=== PATIENT | male | born 1950 | race Caucasian/White ===

== ENCOUNTER 2016-10-20 13:40 | Inpatient (IN) | payer MEDICARE ==
[2016-10-20 14:19] LABS: CHLORIDE,CL 96 mEq/L (98-106); SODIUM,NA 129 mEq/L (136-145)
[2016-10-20] MEDS ORDERED: Temazepam 15 MG Cap PO PRN (14:49)
[2016-10-20] MEDS ORDERED: Insulin Aspart 100 Units/ML 3 ML Pen SUBCUT ONE (14:54)
[2016-10-20] MEDS: Sodium Chloride 0.9% 2,000 ML IV SCH ×2 (17:14→21:44)
[2016-10-20] MEDS: Insulin Aspart 100 Units/ML 3 ML Pen SUBCUT SCH ×2 (18:27→20:36)
[2016-10-20] MEDS: Enoxaparin 40 MG/0.4 ML Syringe SUBCUT SCH (20:36)
[2016-10-20] MEDS ORDERED: Sodium Chloride 0.9% 1,000 ML IV SCH (23:00)
[2016-10-21] MEDS: Lisinopril 10 MG Tab PO SCH (07:36)
[2016-10-21 08:02] LABS: CHLORIDE,CL 104 mEq/L (98-106); SODIUM,NA 136 mEq/L (136-145)
[2016-10-21] MEDS: Insulin Aspart 100 Units/ML 3 ML Pen SUBCUT SCH ×4 (08:50→21:00)
[2016-10-21] MEDS ORDERED: Sodium Chloride 0.9% 10 ML Syringe FLUSH PRN (09:02)
[2016-10-21] MEDS: metFORMIN 500 MG Tab.ER PO SCH (09:58)
[2016-10-21] MEDS ORDERED: Insulin Detemir 100 Units/ML 3 ML Pen SUBCUT SCH (20:00)
[2016-10-21] MEDS: Enoxaparin 40 MG/0.4 ML Syringe SUBCUT SCH (21:11)
[2016-10-22 08:16] VITALS: BP 116/72
--- NOTE | 2016-10-22 08:25 | PCM.PN ---
- General Info Date of Service: 10/21/16 Admission Dx/Problem (Free Text): New Onset Diabetes Type 2 Functional Status: Reports: Pain Controlled, Tolerating Diet, Ambulating - Review of Systems General: Reports: Weakness, Fatigue. Denies: Fever HEENT: Reports: No Symptoms Pulmonary: Denies: Shortness of Breath, Cough, Wheezing Cardiovascular: Denies: Chest Pain, Edema, Lightheadedness Gastrointestinal: Denies: Abdominal Pain, Nausea, Vomiting Genitourinary: Reports: Other (polyuria) Musculoskeletal: Reports: No Symptoms Skin: Reports: No Symptoms Neurological: Reports: Weakness. Denies: Dizziness, Headache - Patient Data Vitals - Most Recent: Last Vital Signs Temp 99.6 F 10/22/16 08:00 Pulse 60 10/22/16 08:00 Resp 16 10/22/16 08:00 BP 116/72 10/22/16 08:00 Pulse Ox 96 10/22/16 08:00 Weight - Most Recent: 211 lb 9.6 oz I&O - Last 24 Hours: Intake & Output 10/21/16 10/22/16 10/22/16 22:59 06:59 14:59 Intake Total 1560 750 Output Total 2700 1500 Balance -1140 -750 Lab Results Last 24 Hours: Laboratory Results - last 24 hr 10/21/16 Range/Units 11:20 POC Glucose 296 H (75-105) mg/dl Med Orders - Current: Current Medications Enoxaparin Sodium (Lovenox) 40 mg SUBCUT Q24H [facility] Last Admin: 10/21/16 21:11 Dose: 40 mg Insulin Aspart (Novolog) 0 unit SUBCUT WITHMEALSANDBED [facility] PRN Reason: Protocol Last Admin: 10/21/16 21:00 Dose: 8 unit Insulin Detemir (Levemir) 15 unit SUBCUT BEDTIME [facility] Last Admin: 10/21/16 21:11 Dose: 15 units Lisinopril (Prinivil) 10 mg PO DAILY [facility] Last Admin: 10/21/16 07:36 Dose: 10 mg Metformin HCl (Glucophage Xr) 1,000 mg PO DAILY [facility] Last Admin: 10/21/16 09:58 Dose: 1,000 mg Sodium Chloride (Saline Flush) 10 ml FLUSH ASDIRECTED PRN PRN Reason: Keep Vein Open Temazepam (Restoril) 15 mg PO BEDTIME PRN PRN Reason: Sleep Discontinued Medications Sodium Chloride (Normal Saline) 2,000 mls @ 250 mls/hr IV ASDIRECTED [facility] Stop: 10/21/16 22:59 Last Admin: 10/20/16 21:44 Dose: 250 mls/hr Sodium Chloride (Normal Saline) 1,000 mls @ 100 mls/hr IV ASDIRECTED [facility] Last Admin: 10/21/16 01:46 Dose: 100 mls/hr Insulin Aspart (Novolog) 10 unit SUBCUT ONETIME ONE Stop: 10/20/16 14:55 Last Admin: 10/20/16 16:42 Dose: 10 units - Exam General: Alert, Oriented HEENT: Mucous Membr. Moist/[place] Neck: Supple Lungs: Clear to Auscultation, Normal Respiratory Effort Cardiovascular: Regular Rate, Regular Rhythm GI/Abdominal Exam: Normal Bowel Sounds, Soft, Non-Tender Extremities: Normal Inspection, No Pedal Edema Skin: Warm, Dry Neurological: No New Focal Deficit Psy/Mental Status: Alert, Normal Affect, Normal Mood - Problem List & Annotations (1) Type 2 diabetes mellitus SNOMED Code(s): 09422776 Code(s): E11.9 - TYPE 2 DIABETES MELLITUS WITHOUT COMPLICATIONS Status: Acute Priority: High Current Visit: Yes Qualifiers: Diabetes mellitus complication status: with hyperglycemia (2) Dehydration SNOMED Code(s): 63478733 Code(s): E86.0 - DEHYDRATION Status: Acute Priority: High Current Visit : Yes - Problem List Review Problem List Initiated/Reviewed/Updated: Yes - My Orders Last 24 Hours: My Active Orders 10/21/16 08:00 metFORMIN [Glucophage XR] 1,000 mg PO DAILY 10/21/16 09:01 Diabetes Education [RC] DAILY Consult to Diabetic Nurse Specialist [CONS] Routine 10/21/16 09:02 Sodium Chloride 0.9% [Saline Flush] 10 ml FLUSH ASDIRECTED PRN Convert IV to Saline Lock [OM.PC] Routine 10/21/16 20:00 Insulin Detemir [Levemir] 15 unit SUBCUT BEDTIME - Assessment Assessment:: Type 2 Diabetes Mellitus Dehydration - Plan Plan:: 10-21-[address] Gutierrez with new onset diabetes. Presented with polyuria , polydipsia and a 50# weight loss over 3 months. Has been feeling some weakness and fatigue. Was found to have blood sugars over 500 on admit with an A1C of 11.9%. Admitted and started on IV fluids, sliding scale insulin. He admits to feeling somewhat better today, blood sugars down to 300 range. Has seen some improvement with polyuria. Labs all noted. Panel 8 stable this am. Will start Metformin today, Levemir at night. Diabetic education for patient. Help to demonstrate and train patient to learn how to check blood sugars, give insulin. Saline lock IV. Possible discharge tomorrow.
[2016-10-22] MEDS: Insulin Aspart 100 Units/ML 3 ML Pen SUBCUT SCH (08:38)
[2016-10-22] MEDS: metFORMIN 500 MG Tab.ER PO SCH (08:38)
[2016-10-22] MEDS: Lisinopril 10 MG Tab PO SCH (08:39)
--- NOTE | 2016-10-22 11:10 | PCM.DCSUM1 ---
Discharge Summary - Hospital Course Free Text/Narrative:: Patient admitted by Dr. Gutierrez for new onset diabetes mellitus type 2. Had a 50# weight loss over 3 months, polyuria, polydipsia. Had not been feeling well. Labs ordered on admit showed blood sugar over 500, A1C 11.5. Was admitted for IV fluids, diabetic education and start on sliding scale insulin. - Discharge Data Discharge Date: 10/22/16 Discharge Disposition: Home, Self-Care 01 Condition: Good - Discharge Diagnosis/Problem(s) (1) Type 2 diabetes mellitus SNOMED Code(s): 73041564 ICD Code: E11.9 - TYPE 2 DIABETES MELLITUS WITHOUT COMPLICATIONS Status: Acute Priority: High Current Visit: Yes Qualifiers: Diabetes mellitus complication status: with hyperglycemia (2) Dehydration SNOMED Code(s): 02645855 ICD Code: E86.0 - DEHYDRATION Status: Acute Priority: High Current Visit: Yes - Patient Summary/Data Complications: none Consults: Consultations 10/20/16 14:49 Consult to Diabetic Nurse Specialist [CONS] Urgent Consult to Lamp Mechanic [CONS] Routine 10/21/16 09:01 Consult to Diabetic Nurse Specialist [CONS] Routine Hospital Course: Patient is doing better today. Blood sugars down to 250-300. Blood pressure in good control. Has had sliding scale insulin through the stay, approximately 4-6 units each meal. Voiding less frequently. Diabetic education has been provided. Patient has been demonstrated understanding of checking blood sugars and has been performing these over the last 24 hours. Patient did give himself his injections yesterday as well. Dietitian in to give him information on his new diagnosis and dietary changes with this. - Patient Instructions Diet: Diabetic Diet Activity: As Tolerated Notify Provider of: Fever, Nausea and/or Vomiting - Discharge Plan Prescriptions/Med Rec: Insulin Detemir [Levemir] 20 unit SUBCUT BEDTIME #1 pen Lisinopril 10 mg PO DAILY #30 tablet metFORMIN HCl [Metformin HCl ER] 1,000 mg PO DAILY #30 tab.er.24 Home Medications: Home Meds Ibuprofen/Diphenhydramine Cit [Ibuprofen PM Caplet] 1 - 2 tab PO BEDTIME [History] Insulin Detemir [Levemir] 20 unit SUBCUT BEDTIME #1 pen 10/22/16 [Rx] Lisinopril 10 mg PO DAILY #30 tablet 10/22/16 [Rx] metFORMIN HCl [Metformin HCl ER] 1,000 mg PO DAILY #30 tab.er.24 10/22/16 [Rx] Patient Handouts: Type 2 Diabetes Mellitus, Adult, Insulin Treatment for Diabetes, Hypoglycemia, Hyperglycemia, [id number] Referrals: August Gutierrez MD [Primary Care Provider] - (Follow up with Dr. Gutierrez on October 29) - Discharge Summary/Plan Comment DC Time >30 min.: No Discharge Summary/Plan Comment: Discharge home on Levemir 20 units every HS. Start Lisinopril and Metformin. Continue to check blood sugars and keep a log. Bring log to appointment with Dr. Gutierrez next week. Meet with senior health educator next week. - General Info Date of Service: 10/22/16 Admission Dx/Problem (Free Text: New Onset Diabetes Type 2 Functional Status: Reports: Pain Controlled, Tolerating Diet, Ambulating - Review of Systems General: Reports: Weakness. Denies: Fever HEENT: Reports: No Symptoms Pulmonary: Denies: Shortness of Breath, Cough Cardiovascular: Denies: Chest Pain, Edema, Lightheadedness Gastrointestinal: Reports: No Symptoms Genitourinary: Reports: No Symptoms Musculoskeletal: Reports: No Symptoms Skin: Reports: No Symptoms Neurological: Reports: No Symptoms Psychiatric: Reports: No Symptoms - Patient Data Vitals - Most Recent: Last Vital Signs Temp 99.6 F 10/22/16 08:00 Pulse 60 10/22/16 08:00 Resp 16 10/22/16 08:00 BP 116/72 10/22/16 08:39 Pulse Ox 96 10/22/16 08:00 Weight - Most Recent: 211 lb 9.6 oz I&O - Last 24 hours: Intake & Output 10/21/16 10/22/16 10/22/16 22:59 06:59 14:59 Intake Total 1560 750 Output Total 2700 1500 150 Balance -1140 -750 -150 Lab Results - Last 24 hrs: Laboratory Results - last 24 hr 10/21/16 Range/Units 11:20 POC Glucose 296 H (75-105) mg/dl Med Orders - Current: Current Medications Enoxaparin Sodium (Lovenox) 40 mg SUBCUT Q24H [facility] Last Admin: 10/21/16 21:11 Dose: 40 mg Insulin Aspart (Novolog) 0 unit SUBCUT WITHMEALSANDBED [facility] PRN Reason: Protocol Last Admin: 10/22/16 08:38 Dose: 4 unit Insulin Detemir (Levemir) 15 unit SUBCUT BEDTIME [facility] Last Admin: 10/21/16 21:11 Dose: 15 units Lisinopril (Prinivil) 10 mg PO DAILY [facility] Last Admin: 10/22/16 08:39 Dose: 10 mg Metformin HCl (Glucophage Xr) 1,000 mg PO DAILY [facility] Last Admin: 10/22/16 08:38 Dose: 1,000 mg Sodium Chloride (Saline Flush) 10 ml FLUSH ASDIRECTED PRN PRN Reason: Keep Vein Open Temazepam (Restoril) 15 mg PO BEDTIME PRN PRN Reason: Sleep Discontinued Medications Sodium Chloride (Normal Saline) 2,000 mls @ 250 mls/hr IV ASDIRECTED [facility] Stop: 10/21/16 22:59 Last Admin: 10/20/16 21:44 Dose: 250 mls/hr Sodium Chloride (Normal Saline) 1,000 mls @ 100 mls/hr IV ASDIRECTED [facility] Last Admin: 10/21/16 01:46 Dose: 100 mls/hr Insulin Aspart (Novolog) 10 unit SUBCUT ONETIME ONE Stop: 10/20/16 14:55 Last Admin: 10/20/16 16:42 Dose: 10 units - Exam Quality Assessment: Reports: Supplemental Oxygen General: Reports: Alert, Oriented HEENT: Reports: Mucous Membr. Moist/[place] Neck: Reports: Supple Lungs: Reports: Clear to Auscultation, Normal Respiratory Effort Cardiovascular: Reports: Regular Rate, Regular Rhythm GI/Abdominal Exam: Normal Bowel Sounds, Soft, Non-Tender Extremities: Normal Inspection, No Pedal Edema Skin: Reports: Warm, Dry Neurological: Reports: No New Focal Deficit Psy/Mental Status: Reports: Alert, Normal Affect, Normal Mood *Q Meaningful Use (DIS) - VTE *Q VTE Criteria *Q: - Stroke *Q Stroke Criteria *Q: - AMI *Q AMI Criteria *Q:
== END 2016-10-22 11:35 | disposition home or self-care (01) | DRG 639 ==
LOC: CC.MS 13:40 → CC.FCMC 13:40 → UNDOADMIN 14:28 → CC.MS 14:28
PROVIDERS: ADMIT Family Medicine; ATTEND Family Medicine
DX: E11.65 Type 2 diabetes mellitus with hyperglycemia (principal); E86.0 Dehydration; R63.4 Abnormal weight loss; I10 Essential (primary) hypertension; E11.9 Type 2 diabetes mellitus without complications; Z12.5 Encounter for screening for malignant neoplasm of prostate; I83.90 Asymptomatic varicose veins of unspecified lower extremity; R35.8 Other polyuria; R63.1 Polydipsia
CPT/HCPCS: 36415; 80053; 81001; 83036; 84443; 85025; G0103; 80048; 82962; A9270-GY; J1650; J1815-GY; J7030

== ENCOUNTER 2018-01-09 12:55 | Emergency (ER) | payer MEDICARE, OTHER ==
[2018-01-09 13:12] VITALS: BP 139/75
--- NOTE | 2018-01-09 13:37 | EDM.PDOC ---
ED HPI GENERAL MEDICAL PROBLEM - General Chief Complaint: Gastrointestinal Problem Stated Complaint: ATE TO FAST AND FEELS LIKE ITS NOT MOVING Time Seen by Provider: 01/09/18 13:29 Source of Information: Reports: Patient, Family History Limitations: Reports: No Limitations - History of Present Illness INITIAL COMMENTS - FREE TEXT/NARRATIVE: Loi is a 67 year old male who presents to the clinic with c/o "not passing food." He reports that last evening he ate pork chops. He feels that they did not pass as he feels "something stuck" just below his sternum. He reports then this morning he tried to eat oatmeal and feels the same thing happened. He denies any pain, but just "feels like something's stuck." He reports he has been having these issues intermittently since September of this year. He reports he has to eat very slow as he is worried food will get stuck. He denies any blood in his stools. He has not had any fevers or joint pains. Denies any nausea , vomiting, diarrhea, chest pain, shortness of breath, dizziness, urinary symptoms. Does report occasionally when he tried to eat something he will have to "spit up mucous" as it won't "go down." He was diagnosed with Type II DM in October 2016. Chart review shows he came to the clinic at that time for a 50 lb weight loss over the previous few months. His A1c at that time was found to be 11.5. Random glucose in the 500s. He follows a strict diabetic diet and has managed his diabetes with metformin alone. He reports that he does walk some for exercise but does not exercise regularly. He has continued to lose an additional 50 lbs of weight unintentionally. Family report a 100 lb unintentional weight loss in the past year. Additionally, patient has had a 20 lb weight loss since his last visit in the clinic November. Onset Date: 09/08/17 Duration: Getting Worse Location: Reports: Abdomen Quality: Reports: Pressure Improves with: Reports: None Worsens with: Reports: Eating Associated Symptoms: Reports: Loss of Appetite, Other (weight loss). Denies: Confusion, Chest Pain, Cough, cough w sputum, Diaphoresis, Fever/Chills, Headaches, Malaise, Nausea/Vomiting, Rash, Seizure, Shortness of Breath, Syncope , Weakness - Related Data Allergies Allergy/AdvReac Type Severity Reaction Status Date / Time No Known Allergies Allergy Verified 01/09/18 13:17 Home Meds: Home Meds Ibuprofen/Diphenhydramine Cit [Ibuprofen PM Caplet] 1 - 2 tab PO BEDTIME [History] Lisinopril 10 mg PO DAILY #30 tablet 10/22/16 [Rx] metFORMIN HCl [Metformin HCl ER] 1,000 mg PO DAILY #30 tab.er.24 10/22/16 [Rx] amLODIPine Besylate [Amlodipine Besylate] 5 mg PO DAILY 01/09/18 [History] Past Medical History HEENT History: Reports: Impaired Vision Cardiovascular History: Reports: Hypertension Endocrine/Metabolic History: Reports: Diabetes, Type II - Past Surgical History HEENT Surgical History: Reports: None GI Surgical History: Reports: Appendectomy Social & Family History - Family History Family Medical History: Noncontributory - Tobacco Use Smoking Status *Q: Never Smoker - Caffeine Use Caffeine Use: Reports: None - Recreational Drug Use Recreational Drug Use: No ED ROS GENERAL - Review of Systems Review Of Systems: See Below Constitutional: Reports: Decreased Appetite, Weight Loss (~100 lbs in past year) . Denies: Fever, Chills, Malaise, Weakness, Fatigue HEENT: Denies: Dental Pain, Rhinitis, Throat Pain, Throat Swelling Respiratory: Denies: Shortness of Breath, Pleuritic Chest Pain, Cough, Sputum, Hemoptysis Cardiovascular: Denies: Chest Pain, Dyspnea on Exertion, Edema, Lightheadedness , Palpitations, Syncope Endocrine: Reports: No Symptoms GI/Abdominal: Reports: Decreased Appetite, Difficulty Swallowing ("feels like it gets stuck"), Other (spitting after eating, no significant vomiting). Denies : Abdominal Pain, Anorexia, Black Stool, Bloody Stool, Distension, Hematemesis, Hematochezia, Melena, Nausea, Vomiting : Reports: No Symptoms Musculoskeletal: Reports: No Symptoms Skin: Reports: No Symptoms Neurological: Reports: No Symptoms Psychiatric: Reports: No Symptoms Hematologic/Lymphatic: Reports: No Symptoms Immunologic: Reports: No Symptoms ED EXAM, GI/ABD - Physical Exam Exam: See Below Exam Limited By: No Limitations General Appearance: Alert, No Apparent Distress, Thin Eyes: Bilateral: Normal Appearance, EOMI Throat/Mouth: Normal Inspection, Normal Lips, Normal Teeth, Normal Gums, Normal Oropharynx, Normal Voice, No Airway Compromise Head: Atraumatic, Normocephalic Neck: Normal Inspection, Supple, Non-Tender, Full Range of Motion. No: Tender Lateral, Tender Midline Respiratory/Chest: No Respiratory Distress, Lungs Clear, Normal Breath Sounds, No Accessory Muscle Use, Chest Non-Tender Cardiovascular: Normal Peripheral Pulses, Regular Rate, Rhythm, No Edema, No Gallop, No JVD, No Murmur, No Rub GI/Abdominal Exam: Normal Bowel Sounds, Soft, Non-Tender, No Organomegaly, No Distention, No Abnormal Bruit, No Mass, Other (sunken appearance) Back Exam: Normal Inspection, Full Range of Motion. No: CVA Tenderness (L), CVA Tenderness (R) Extremities: Normal Inspection, Normal Range of Motion, Non-Tender, Normal Capillary Refill, No Pedal Edema Neurological: Alert, Oriented, CN II-XII Intact, Normal Cognition, Normal Gait, Normal Reflexes, No Motor/Sensory Deficits Psychiatric: Normal Affect, Normal Mood Skin Exam: Warm, Dry, Intact, Normal Color, No Rash Lymphatic: No Adenopathy Course - Vital Signs Last Recorded V/S: Last Vital Signs Temp 99.2 F 01/09/18 12:58 Pulse 87 01/09/18 12:58 Resp 18 01/09/18 12:58 BP 139/75 01/09/18 12:58 Pulse Ox 99 01/09/18 12:58 - Orders/Labs/Meds Orders: Active Orders 24 hr Category Date Time Status Abdomen 2V AP Flat Upright [CR] Stat Exams 01/09/18 13:15 Taken Labs: Laboratory Tests 01/09/18 01/09/18 Range/Units 13:37 13:37 WBC 9.1 (5.0-10.0) 10^3/uL RBC 4.66 (4.50-6.00) 10^6/uL Hgb 15.5 (14.0-18.0) g/dL Hct 44.2 (40.0-54.0) % MCV 94.8 H (82.0-94.0) fL MCH 33.3 H (27.0-32.0) pg MCHC 35.1 (33.0-38.0) g/dL RDW Coeff of Matthew 12.9 (11.0-15.0) % Plt Count 355 (150-400) 10^3/uL Neut % (Auto) 76.7 (35-85) % Lymph % (Auto) 16.3 (10-55) % [place] % (Auto) 6.7 (0-16) % Eos % (Auto) 0.2 (0-5) % Baso % (Auto) 0.1 (0-3) % Neut # (Auto) 6.99 (1.80-7.00) 10^3/uL Lymph # (Auto) 1.49 (1.00-4.80) 10^3/uL [place] # (Auto) 0.61 (0.00-0.80) 10^3/uL Eos # (Auto) 0.02 (0.00-0.45) 10^3/uL Baso # (Auto) 0.01 10^3/uL Sodium 143 (136-145) mEq/L Potassium 4.2 (3.5-5.0) mEq/L Chloride 104 (98-106) mEq/L Carbon Dioxide 27 (21-32) mmol/L BUN 24 H (7-18) mg/dL Creatinine 1.1 (0.7-1.3) mg/dL Est Cr Clr Drug Dosing 73.40 mL/min Estimated GFR (MDRD) > 60 (>=60) mL/min Glucose 120 H (75-99) mg/dL Calcium 9.2 (8.4-10.1) mg/dL Total Bilirubin 0.5 (0.0-1.0) mg/dL AST 19 (15-37) U/L ALT 30 (12-78) U/L Alkaline Phosphatase 92 (46-116) U/L C-Reactive Protein < 0.2 L (0.2-0.8) mg/dL Total Protein 7.4 (6.4-8.2) g/dL Albumin 4.2 (3.4-5.0) g/dL - Re-Assessments/Exams Free Text/Narrative Re-Assessment/Exam: 01/09/18 14:15 Discussed lab and xray findings with patient, spouse, and son. Discussed that because he is not actively vomiting, with no indication of obstruction on imaging, this is something that needs follow up as outpatient. Discussed that with significant weight loss over the last year and recent onset of these swallowing issues, he needs upper endoscopy. Departure - Departure Time of Disposition: 14:21 Disposition: Home, Self-Care 01 Condition: Fair Clinical Impression: Recent unintentional weight loss over several months, Esophageal dysphagia - Discharge Information *PRESCRIPTION DRUG MONITORING PROGRAM REVIEWED*: Not Applicable *COPY OF PRESCRIPTION DRUG MONITORING REPORT IN PATIENT CRISTEL: Not Applicable Instructions: Dysphagia Referrals: August Gutierrez MD [Primary Care Provider] - Forms: ED Department Discharge Additional Instructions: Eat small bites of soft textured foods until follow up. Sips of [employer] if difficulty with swallowing. Will call with radiologist xray results once available. Discussed the need for upper endoscopy given unintentional weight loss and current symptoms. Recommend follow up with Dr. Gutierrez this week. Call clinic tomorrow morning to set up appointment. - My Orders Last 24 Hours: My Active Orders 01/09/18 13:15 Abdomen 2V AP Flat Upright [CR] Stat - Assessment/Plan Last 24 Hours: My Active Orders 01/09/18 13:15 Abdomen 2V AP Flat Upright [CR] Stat
[2018-01-09 14:06] LABS: CHLORIDE,CL 104 mEq/L (98-106); SODIUM,NA 143 mEq/L (136-145)
== END 2018-01-09 14:39 | disposition home or self-care (01) ==
LOC: CC.ED 12:55
DX: R13.19 Other dysphagia (principal); R63.4 Abnormal weight loss; I10 Essential (primary) hypertension; E11.9 Type 2 diabetes mellitus without complications; Z79.84 Long term (current) use of oral hypoglycemic drugs; Z79.899 Other long term (current) drug therapy
CPT/HCPCS: 36415; 74019; 80053; 85025; 86140; 99284

== ENCOUNTER → 2018-01-13 | Day surgery (SDC) | payer MEDICARE, OTHER ==
[~2018-01-13] MED LIST: Benzocaine 20% Oral Spray 59.2 ML Canister MUCMEM ONE; Lactated Ringers 1,000 ML IV SCH; Midazolam 1 MG/ML 2 ML SDV IV ONE; Midazolam 1 MG/ML 2 ML SDV ONE
[2018-01-13 11:25] VITALS: BP 101/61
--- NOTE | 2018-01-13 14:23 | OR ---
DATE OF OPERATION: 01/13/2018 PREOPERATIVE DIAGNOSIS: DYSPHAGIA. POSTOPERATIVE DIAGNOSIS: DYSPHAGIA. SURGEON: Lloyd Wheeler MD PROCEDURE: ESOPHAGOGASTRODUODENOSCOPY WITH MULTIPLE DISTAL ESOPHAGEAL BIOPSIES AND PHOTOGRAPHS. ANESTHESIA: Conscious sedation with IV Versed. SPECIMEN: Multiple distal esophageal biopsies. 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 INDICATION FOR PROCEDURE: This 67-year-old male has dysphagia, mostly to meat products and solid foods. DESCRIPTION OF PROCEDURE: After adequate preparation, a gastroscope was inserted into the esophagus. This was passed down to the distal esophagus. He shows marked erosions of the esophagus and at least a 10 cm area that is consistent with Marshall's. He has some especially macerated area further down, toward the EG junction. The scope was advanced into the stomach, and retroflexed views were done. I did not see any significant mass areas on the gastric side of the EG junction, but it does show a large hiatal hernia opening. The scope was advanced through the stomach and into the pylorus and duodenum. These were normal. On withdrawal of the scope, multiple photographs of the distal esophagus were taken and multiple biopsies in different areas. Air was suctioned from the stomach and the scope removed. HASMUKH/WILFRID /[id number]
== END ==
LOC: CC.SDS 09:45
PROVIDERS: ATTEND Surgery
DX: C15.5 Malignant neoplasm of lower third of esophagus (principal); K44.9 Diaphragmatic hernia without obstruction or gangrene; I10 Essential (primary) hypertension; E11.9 Type 2 diabetes mellitus without complications; Z87.891 Personal history of nicotine dependence; Z79.84 Long term (current) use of oral hypoglycemic drugs; Z79.899 Other long term (current) drug therapy
CPT/HCPCS: 43239; 82962; J2250; J7120; 88305; 88313; 88342

== ENCOUNTER 2018-02-18 14:38 | Inpatient (IN) | payer MEDICARE, OTHER ==
[2018-02-18] MEDS ORDERED: Temazepam 15 MG Cap PO PRN (14:55)
[2018-02-18] MEDS ORDERED: Sodium Chloride 0.9% 10 ML Syringe FLUSH PRN (14:55)
[2018-02-18] MEDS ORDERED: Ondansetron 4 MG Tab.DIS PO PRN (14:55)
[2018-02-18] MEDS ORDERED: Acetaminophen/HYDROcodone 325-5 MG Tab PO PRN (14:55)
[2018-02-18 15:42] LABS: CHLORIDE,CL 100 mEq/L (98-106); SODIUM,NA 137 mEq/L (136-145)
[2018-02-18] MEDS ORDERED: Pantoprazole 40 MG Vial IVPUSH SCH (16:00)
[2018-02-18] MEDS: Piperacillin/Tazobactam 3.375 GM in Sodium Chloride 0.9% 50 ML IV SCH ×2 (16:08→21:56)
[2018-02-18] MEDS: Acetaminophen 325 MG Tab PO PRN ×2 (16:08→20:30)
[2018-02-18] MEDS: Enoxaparin 40 MG/0.4 ML Syringe SUBCUT SCH (16:08)
--- NOTE | 2018-02-18 17:44 | PCM.SN ---
- Free Text/Narrative Note: Asked to see patients with non-functioning J-tube. Has esophageal tube with placement of tube for nutrition prior to Rx and chemo. Tube not flushing. Tube balloon deflated and the advanced. Tube now freely movable. Balloon reinflated. KUB with dye confirms tube still inside bowel. May use tube for feeding. Consult dictated. Dr. Wheeler
[2018-02-18] MEDS ORDERED: Ibuprofen 200 MG Tab PO ONE (18:17)
[2018-02-18] MEDS ORDERED: Ibuprofen 200 MG Tab PO PRN (18:18)
[2018-02-18] MEDS ORDERED: Acetaminophen/oxyCODONE 325-5 MG Tab PO SCH (18:30)
[2018-02-18] MEDS ORDERED: Acetaminophen/oxyCODONE 325-5 MG Tab PO PRN (19:01)
[2018-02-18] MEDS ORDERED: amLODIPine 2.5 MG Tab PO SCH (20:00)
--- NOTE | 2018-02-19 01:29 | CONS ---
DATE: 02/18/2018 ATTENDING PHYSICIAN: August Gutierrez MD CONSULTING PHYSISICIAN: Lloyd Wheeler MD INTRODUCTION: This 67-year-old male was admitted through the clinic as an inpatient to . He has a diagnosis of esophageal carcinoma and currently has a right subclavian Port-A-Cath placement and a jejunostomy tube that is nonfunctioning. The consult was for evaluation of the jejunostomy tube. Examination does show a bulge, which is either subcutaneous or intramuscular. With palpation, it has some leakage of feeding tube substance back through and around the tube site. It indicates that the tube is not in the correct position. The feeding jejunostomy tube does have a balloon at the end. I deflated the balloon and then advanced the tube further into the bowel and reinflated the balloon. This then did free up the catheter and I was able to then flush the catheter without any problems. To document that this was still within the lumen of the bowel, a radiopaque dye was used to inject through the tube and a flat plate of the abdomen was taken. This did confirm that the dye was within the bowel and the feeding tube can be reused. For the present time, I am going to leave the subcutaneous collection as it seems to be draining around the tube. Instead of incising and draining this, we will have to follow this to determine if anything else needs to be done about this subcutaneous collection. The feeding tube, however, is working now and can be used. HASMUKH/PHOENIXL /[id number]
[2018-02-19] MEDS: Piperacillin/Tazobactam 3.375 GM in Sodium Chloride 0.9% 50 ML IV SCH ×3 (03:57→15:46)
[2018-02-19] MEDS ORDERED: Pantoprazole 40 MG Tab.CR PO SCH (08:00)
[2018-02-19] MEDS ORDERED: metFORMIN 500 MG Tab.ER PO SCH (08:00)
[2018-02-19] MEDS ORDERED: Lisinopril 10 MG Tab PO SCH (08:00)
[2018-02-19 08:23] VITALS: BP 102/54
[2018-02-19 09:24] LABS: CHLORIDE,CL 98 mEq/L (98-106); SODIUM,NA 135 mEq/L (136-145)
[2018-02-19] MEDS: Acetaminophen 325 MG Tab PO PRN (13:56)
--- NOTE | 2018-02-19 15:38 | PCM.DCSUM1 ---
Discharge Summary - Hospital Course HPI Initial Comments: This patient is a 67 year old male admitted yesterday afternoon to the hospital. Patient has esophageal cancer, start chemo scheduled for Wednesday. He got a J tube placed on kavya per patient. It had odor on kavya, co placed on Augmentin then. The patient reports that on this week he had felt like he had a fever, felt weak and not very well. He noticed a redness around the area of the J tube site. The patient was seen yesterday and admitted on IV Zosyn. The patient had tube feedings started. It was reported the tube feeds were leaking and possible tube out of place. General surgeon here put back in place, and image showed in place. The tube feedings were decreased in half to 42ml/hr. The nurse today reported to me that she attempted tube feedings and again it had drainage out around the tube that was a lot. I then went and examined the patient. The patient has redness surrounding the tube , there is read streaking to the left lateral side and left lower abdomen from the site. There is warm to touch. There is copius amounts of purulent drainage yellow from the site. The patient reports that today he feels worse. 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 We have no radiologist to do fluoro to check tube placement. Tube feedings will not be started. While there is some mild imprrovement in labs, the patient site looks worse today. I have called and spoke to [facility]. Spoke to Dr. Graff the hospitalist. He reports to send the patient and general surgery would like to see the patient. US yesterday, reviewed report shows possible fluid collection. Concern is this is abscess collection. Concern is I also do not know if the J tube is still in place with increased drainage from site during feedings. The feedings are held. Dr. Graff has agreed to accept the patient. Will transfer to [facility]. The risk of transfer are , worsening of condition, pain increase, mvc. The benefits of transfer are fluoro if needed, general surgeon on site, higher level of care. The benefits of staying in [place] close to home. The risk of staying in [place] is no tube feedings, worsening of infection, , no surgeon. Diagnosis: Stroke: No - Discharge Data Discharge Date: 02/19/18 ([facility]) Discharge Disposition: DC/Tfer to Acute Hospital 02 Condition: Good - Patient Summary/Data Consults: Consultations 02/18/18 16:45 Consult to Physician [CONS] Urgent - Patient Instructions Diet: NPO Diet, Other: No tube Feedings until cleared Activity: Bedrest - Discharge Plan *PRESCRIPTION DRUG MONITORING PROGRAM REVIEWED*: Not Applicable *COPY OF PRESCRIPTION DRUG MONITORING REPORT IN PATIENT CRISTEL: Not Applicable Home Medications: Home Meds Ibuprofen/Diphenhydramine Cit [Ibuprofen PM Caplet] 1 - 2 tab PO BEDTIME [History] amLODIPine Besylate [Amlodipine Besylate] 5 mg PO BEDTIME 01/09/18 [History] Lisinopril 20 mg PO DAILY 01/13/18 [History] Ibuprofen 400 mg PO Q8H PRN 02/18/18 [History] Pantoprazole [ProTONIX] 40 mg PO DAILY 02/18/18 [History] metFORMIN [Glucophage XR] 500 mg PO DAILY 02/18/18 [History] oxyCODONE HCl/Acetaminophen [Oxycodone-Acetaminophen 5-325] 1 - 2 each PO Q4H [History] - Discharge Summary/Plan Comment DC Time >30 min.: No - General Info Functional Status: Reports: Other (No tube feedings ) - Review of Systems General: Reports: Fever, Weakness (gnerally), Fatigue, Malaise, Appetite ( decreased) HEENT: Reports: No Symptoms Pulmonary: Reports: No Symptoms Cardiovascular: Reports: No Symptoms Gastrointestinal: Reports: Abdominal Pain, Nausea, Other (leaking of tube feedings from j-tube). Denies: Vomiting Genitourinary: Reports: No Symptoms Musculoskeletal: Reports: No Symptoms Skin: Reports: No Symptoms Neurological: Reports: No Symptoms Psychiatric: Reports: No Symptoms - Patient Data Vitals - Most Recent: Last Vital Signs Temp 99 F 02/19/18 08:00 Pulse 80 02/19/18 08:00 Resp 18 02/19/18 08:00 BP 102/54 L 02/19/18 08:23 Pulse Ox 100 02/19/18 08:00 Weight - Most Recent: 180 lb 0.013 oz I&O - Last 24 hours: Intake & Output 01/01/2602/19/18 02/19/18 06:59 14:59 22:59 Intake Total 897 336 Output Total 925 200 Balance -28 136 Lab Results - Last 24 hrs: Laboratory Results - last 24 hr 02/18/18 02/18/18 02/19/18 Range/Units 15:15 20:09 09:05 WBC (5.0-10.0) 10^3/uL RBC (4.50-6.00) 10^6/uL Hgb (14.0-18.0) g/dL Hct (40.0-54.0) % MCV (82.0-94.0) fL MCH (27.0-32.0) pg MCHC (33.0-38.0) g/dL RDW Coeff of Matthew (11.0-15.0) % Plt Count (150-400) 10^3/uL Neut % (Auto) (35-85) % Lymph % (Auto) (10-55) % [place] % (Auto) (0-16) % Eos % (Auto) (0-5) % Baso % (Auto) (0-3) % Neut # (Auto) (1.80-7.00) 10^3/uL Lymph # (Auto) (1.00-4.80) 10^3/uL [place] # (Auto) (0.00-0.80) 10^3/uL Eos # (Auto) (0.00-0.45) 10^3/uL Baso # (Auto) 10^3/uL Sodium 137 (136-145) mEq/L Potassium 4.6 (3.5-5.0) mEq/L Chloride 100 (98-106) mEq/L Carbon Dioxide 30 (21-32) mmol/L BUN 30 H (7-18) mg/dL Creatinine 0.9 (0.7-1.3) mg/dL Est Cr Clr Drug Dosing TNP Estimated GFR (MDRD) > 60 (>=60) mL/min Glucose 142 H (75-99) mg/dL POC Glucose 243 H (75-105) mg/dl Calcium 8.9 (8.4-10.1) mg/dL Total Bilirubin 0.3 (0.0-1.0) mg/dL AST 20 (15-37) U/L ALT 36 (12-78) U/L Alkaline Phosphatase 128 H (46-116) U/L C-Reactive Protein 17.0 H 14.7 H (0.2-0.8) mg/dL Total Protein 6.6 (6.4-8.2) g/dL Albumin 2.3 L (3.4-5.0) g/dL 02/19/18 02/19/18 Range/Units 09:05 09:05 WBC 14.4 H (5.0-10.0) 10^3/uL RBC 3.42 L (4.50-6.00) 10^6/uL Hgb 11.1 L (14.0-18.0) g/dL Hct 34.2 L (40.0-54.0) % MCV 100.0 H (82.0-94.0) fL MCH 32.5 H (27.0-32.0) pg MCHC 32.5 L (33.0-38.0) g/dL RDW Coeff of Matthew 13.1 (11.0-15.0) % Plt Count 503 H (150-400) 10^3/uL Neut % (Auto) 85.2 H (35-85) % Lymph % (Auto) 8.1 L (10-55) % [place] % (Auto) 6.3 (0-16) % Eos % (Auto) 0.3 (0-5) % Baso % (Auto) 0.1 (0-3) % Neut # (Auto) 12.22 H (1.80-7.00) 10^3/uL Lymph # (Auto) 1.17 (1.00-4.80) 10^3/uL [place] # (Auto) 0.90 H (0.00-0.80) 10^3/uL Eos # (Auto) 0.05 (0.00-0.45) 10^3/uL Baso # (Auto) 0.02 10^3/uL Sodium 135 L (136-145) mEq/L Potassium 5.1 H (3.5-5.0) mEq/L Chloride 98 (98-106) mEq/L Carbon Dioxide 30 (21-32) mmol/L BUN 28 H (7-18) mg/dL Creatinine 1.0 (0.7-1.3) mg/dL Est Cr Clr Drug Dosing 83.91 Estimated GFR (MDRD) > 60 (>=60) mL/min Glucose 245 H D (75-99) mg/dL POC Glucose (75-105) mg/dl Calcium 8.7 (8.4-10.1) mg/dL Total Bilirubin (0.0-1.0) mg/dL AST (15-37) U/L ALT (12-78) U/L Alkaline Phosphatase (46-116) U/L C-Reactive Protein (0.2-0.8) mg/dL Total Protein (6.4-8.2) g/dL Albumin (3.4-5.0) g/dL ANGELINA Results - Last 24 hrs: Microbiology 02/18/18 15:20 Aerobic Blood Culture - Preliminary Blood - Venous - Lab Draw NO GROWTH AFTER 1 DAY Anaerobic Blood Culture - Preliminary NO GROWTH AFTER 1 DAY 02/18/18 15:15 Aerobic Blood Culture - Preliminary Blood - Venous NO GROWTH AFTER 1 DAY Anaerobic Blood Culture - Preliminary NO GROWTH AFTER 1 DAY 02/18/18 18:13 Wound Culture - Preliminary Abdomen - Drainage Gram Negative Rods Med Orders - Current: Current Medications Acetaminophen (Tylenol) 650 mg PO Q4H PRN PRN Reason: Pain (Mild 1-3)/fever Last Admin: 02/19/18 13:56 Dose: 650 mg Hydrocodone Bitart/Acetaminophen ([place] 325-5 Mg) 1 tab PO Q4H PRN PRN Reason: Pain (moderate 4-6) Amlodipine Besylate (Norvasc) 5 mg PO BEDTIME [facility] Last Admin: 02/18/18 20:10 Dose: 5 mg Enoxaparin Sodium (Lovenox) 40 mg SUBCUT Q24H [facility] Last Admin: 02/18/18 16:08 Dose: 40 mg Piperacillin Sod/Tazobactam (Sod 3.375 gm/ Sodium Chloride) 50 mls @ 100 mls/ hr IV Q6H [facility] Last Admin: 02/19/18 09:38 Dose: 100 mls/hr Ibuprofen (Motrin) 400 mg PO Q8H PRN PRN Reason: Fever Lisinopril (Prinivil) 20 mg PO DAILY [facility] Last Admin: 02/19/18 08:23 Dose: Not Given Metformin HCl (Glucophage Xr) 500 mg PO DAILY [facility] Last Admin: 02/19/18 07:39 Dose: 500 mg Ondansetron HCl (Zofran Odt) 4 mg PO Q4H PRN PRN Reason: nausea, able to take PO Oxycodone/Acetaminophen (Percocet 325-5 Mg) 1 tab PO Q4H PRN PRN Reason: Pain Pantoprazole Sodium (Protonix Iv) 40 mg IVPUSH Q24H [facility] Last Admin: 02/18/18 16:07 Dose: 40 mg Pantoprazole Sodium (Protonix) 40 mg PO DAILY [facility] Last Admin: 02/19/18 07:39 Dose: 40 mg Sodium Chloride (Saline Flush) 10 ml FLUSH ASDIRECTED PRN PRN Reason: Keep Vein Open Temazepam (Restoril) 15 mg PO BEDTIME PRN PRN Reason: Sleep Discontinued Medications Heparin Sodium (Porcine) (Heparin Lock Flush 100 Units/Ml) Confirm Administered Dose 500 units .ROUTE .STK-MED ONE Stop: 02/19/18 04:46 Last Admin: 02/19/18 04:45 Dose: 500 units Ibuprofen (Motrin) 800 mg PO ONETIME ONE Stop: 02/18/18 18:18 Last Admin: 02/18/18 18:59 Dose: 800 mg Oxycodone/Acetaminophen (Percocet 325-5 Mg) 1 tab PO Q4H [facility] Last Admin: 02/18/18 19:04 Dose: Not Given - Exam General: Reports: Alert, Oriented, Cooperative, Mild Distress Lungs: Reports: Clear to Auscultation, Normal Respiratory Effort Cardiovascular: Reports: Regular Rate, Regular Rhythm, No Murmurs GI/Abdominal Exam: Normal Bowel Sounds, Soft, No Organomegaly, No Abnormal Bruit , Pelvis Stable, Tender (over J Tube), Other (J-tube surrounding redness, streaking from site to the LLQ, left lateral side. Copius amounts of purulent drainage form the site. Warm to touch.) Back Exam: Reports: Normal Inspection, Full Range of Motion Extremities: Normal Inspection, Normal Range of Motion, Non-Tender, No Pedal Edema, Normal Capillary Refill Skin: Reports: Warm, Dry, Other (see abd exam) Neurological: Reports: No New Focal Deficit Psy/Mental Status: Reports: Alert, Normal Affect, Normal Mood
[2018-02-19] MEDS: Enoxaparin 40 MG/0.4 ML Syringe SUBCUT SCH (15:45)
[2018-02-20] MEDS ORDERED: Pantoprazole 40 MG Vial IVPUSH SCH (09:00)
== END 2018-02-19 17:21 | DRG 394 ==
LOC: CC.MS 14:38 → UNDOADMIN 14:38 → CC.MS 14:55
PROVIDERS: ADMIT Family Medicine; ATTEND Family Medicine
PROC: 3E0G76Z Introduction of Nutritional Substance into Upper GI, Via Natural or Artificial Opening (ICD-10-PCS; principal; 2018-02-18)
DX: K94.22 Gastrostomy infection (principal); C15.9 Malignant neoplasm of esophagus, unspecified; L03.311 Cellulitis of abdominal wall; L02.211 Cutaneous abscess of abdominal wall; K94.23 Gastrostomy malfunction; Y83.8 Other surgical procedures as the cause of abnormal reaction of the patient, or of later complication, without mention of misadventure at the time of the procedure; Z79.899 Other long term (current) drug therapy; Z79.84 Long term (current) use of oral hypoglycemic drugs; K21.9 Gastro-esophageal reflux disease without esophagitis; I10 Essential (primary) hypertension; E11.9 Type 2 diabetes mellitus without complications; Z95.828 Presence of other vascular implants and grafts
CPT/HCPCS: 36415; 74018; 76705; 80048; 80053; 82962; 85025; 86140; 87040; 87070; 87077; 87186; A9270-GY; C9113; J1642; J1650; J2543; J7050; Q9967

== ENCOUNTER 2020-10-05 11:21 | Emergency (ER) | payer MEDICARE, OTHER ==
[2020-10-05 11:23] VITALS: BP 136/71; PULSE 79
[2020-10-05] MEDS ORDERED: Sodium Chloride 0.9% 1,000 ML IV SCH (11:45)
--- NOTE | 2020-10-05 12:13 | EDM.PDOC ---
ED HPI GENERAL MEDICAL PROBLEM - General Chief Complaint: General Stated Complaint: N/V Time Seen by Provider: 10/05/20 11:30 Source of Information: Reports: Patient, Family History Limitations: Reports: No Limitations - History of Present Illness INITIAL COMMENTS - FREE TEXT/NARRATIVE: Sohail is a 70 year old male who presents with complaints of nausea and vomiting. Relates has been having issues with his stomach now for several months. Actually sees Dr. Calderon, GI, in [place] for this. Reports has issues with "stomach being full and not moving through". Was seen by his oncologist in August, history of esophageal cancer. Had history of esophagectomy. Previous had concerns with strictures so his oncologist felt needed to be evaluated further as has had dilation before for this. Was then seen by Dr. Gutierrez who referred him to Dr. Calderon for this. Barnum to have gastroparesis so was started on Reglan 5 mg QID. This was doubled about 10 days ago but patient has not seen improvement. Also felt he was having issues with constipation and had been using Miralax. Dr. Calderon's FEATHERER put him on Dulcolax. He has taken several of these and did finally have a good BM a few days ago. Is mostly on a full liquid diet, eating pudding and ice cream and Boost but does relate that his sugars have only went up marginally with this. Due to his excessive weight loss, is off all of his diabetic meds. Today patient is concerned that "can't go through another night of nausea and vomiting. Had back pain also and was unable to sleep last night as he was uncomfortable". Concerned about being dehydrated. Does not have any nausea at present. Last dry heaves were at 0600. Relates received IV fluids in past when this occurred. Onset: Gradual Duration: Hour(s):, Improving Location: Reports: Abdomen Quality: Reports: Ache (nausea at times) Severity: Mild Associated Symptoms: Reports: Loss of Appetite, Nausea/Vomiting, Weakness. Denies: Confusion, Chest Pain, Cough, Fever/Chills, Shortness of Breath Treatments INFORMATICS COORDINATOR: Reports: Other Medication(s) Other Treatments INFORMATICS COORDINATOR: reglan - Related Data Allergies Allergy/AdvReac Type Severity Reaction Status Date / Time No Known Allergies Allergy Verified 10/05/20 11:23 Home Meds: Home Meds Lisinopril 20 mg PO DAILY 10/07/18 [History] amLODIPine [Norvasc] 5 mg PO DAILY 10/07/18 [History] Metoclopramide [Reglan] 10 mg PO QID 09/30/20 [History] bisacodyL [Dulcolax] 5 mg PO DAILY 09/30/20 [History] Omeprazole 20 mg PO DAILY 10/05/20 [History] Past Medical History HEENT History: Reports: Impaired Vision Cardiovascular History: Reports: Hypertension Endocrine/Metabolic History: Reports: Diabetes, Type II Oncologic (Cancer) History: Reports: Esophageal - Past Surgical History HEENT Surgical History: Reports: None GI Surgical History: Reports: Appendectomy, Esophageal Dilatation, Other (See Below) Other GI Surgeries/Procedures: j tube Social & Family History - Family History Family Medical History: No Pertinent Family History - Tobacco Use Tobacco Use Status *Q: Never Tobacco User Second Hand Smoke Exposure: No - Caffeine Use Caffeine Use: Reports: None - Recreational Drug Use Recreational Drug Use: No ED ROS GENERAL - Review of Systems Review Of Systems: See Below Constitutional: Reports: Malaise, Weakness, Fatigue, Decreased Appetite. Denies: Fever, Chills HEENT: Denies: Ear Pain, Sinus Problem, Throat Pain Respiratory: Denies: Shortness of Breath, Cough Cardiovascular: Denies: Chest Pain Endocrine: Reports: Fatigue GI/Abdominal: Reports: Constipation, Nausea. Denies: Abdominal Pain, Vomiting : Reports: No Symptoms Musculoskeletal: Reports: Back Pain Skin: Reports: No Symptoms Neurological: Reports: Weakness ED EXAM, GENERAL - Physical Exam Exam: See Below Exam Limited By: No Limitations General Appearance: Alert, WD/WN, No Apparent Distress Ears: Normal External Exam, Normal TMs Nose: Normal Inspection, Normal Mucosa, No Blood Throat/Mouth: Normal Inspection, Normal Oropharynx Head: Normocephalic Neck: Normal Inspection, Supple, Non-Tender Respiratory/Chest: No Respiratory Distress, Lungs Clear, Normal Breath Sounds Cardiovascular: Regular Rate, Rhythm GI/Abdominal: Normal Bowel Sounds, Soft, Non-Tender Extremities: Normal Inspection, No Pedal Edema Neurological: Alert, Oriented Skin Exam: Warm, Dry Course - Vital Signs Last Recorded V/S: Last Vital Signs Temp 97.0 F 10/05/20 11:21 Pulse 79 10/05/20 11:21 Resp 16 10/05/20 11:21 BP 136/71 10/05/20 11:21 Pulse Ox 98 10/05/20 11:21 - Orders/Labs/Meds Orders: Active Orders 24 hr Category Date Time Status Sodium Chloride 0.9% [Normal Saline] 1,000 ml Med 10/05/20 11:45 Active IV ASDIRECTED Medication Orders Sodium Chloride (Normal Saline) 1,000 mls @ 250 mls/hr IV ASDIRECTED EMMY Last Admin: 10/05/20 12:09 Dose: 250 mls/hr Documented by: SIVA Labs: Laboratory Tests 10/05/20 10/05/20 10/05/20 Range/Units 11:42 12:00 12:00 WBC 8.6 (4.0-11.0) 10^3/uL RBC 3.44 L (4.50-6.00) x10^6/uL Hgb 11.5 L (14.0-18.0) g/dL Hct 34.1 L (42.0-52.0) % MCV 99.1 H (83.0-97.0) fL MCH 33.4 H (27.0-32.0) pg MCHC 33.7 (32.0-36.0) g/dL RDW Coeff of Matthew 12.7 (11.0-15.0) % Plt Count 333 (150-400) 10^3/uL Immature Gran % (Auto) 0.2 (0.0-4.9) % Neut % (Auto) 81.9 H (41-71) % Lymph % (Auto) 7.8 L (24-44) % [place] % (Auto) 8.7 (0-10) % Eos % (Auto) 0.9 (0-6) % Baso % (Auto) 0.5 (0-1) % Neut # (Auto) 7.03 (1.80-8.00) x10^3/uL Lymph # (Auto) 0.67 (0.60-5.00) 10^3/uL [place] # (Auto) 0.75 (0.00-1.50) 10^3/uL Eos # (Auto) 0.08 (0.00-1.50) 10^3/uL Baso # (Auto) 0.04 (0.00-0.50) 10^3/uL Immature Gran # (Auto) 0.02 (0.00-0.49) 10^3/uL Sodium 141 (136-145) mEq/L Potassium 4.3 (3.5-5.0) mEq/L Chloride 103 (98-106) mEq/L Carbon Dioxide 31 (21-32) mmol/L BUN 28 H (7-18) mg/dL Creatinine 1.5 H (0.7-1.3) mg/dL Est Cr Clr Drug Dosing 49.20 mL/min Estimated GFR (MDRD) 46 L (>=60) mL/min Glucose 108 H (75-99) mg/dL Calcium 9.0 (8.4-10.1) mg/dL Total Bilirubin 0.5 (0.0-1.0) mg/dL AST 18 (15-37) U/L ALT 22 (12-78) U/L Alkaline Phosphatase 97 (46-116) U/L C-Reactive Protein 2.6 H (0.2-0.8) mg/dL Total Protein 6.9 (6.4-8.2) g/dL Albumin 3.1 L (3.4-5.0) g/dL Urine Color Yellow (YELLOW) Urine Appearance Clear (CLEAR) Urine pH 7.0 (4.5-8.0) Ur Specific [place] 1.020 (1.003-1.020) Urine Protein Negative (NEGATIVE) mg/dL Urine Glucose (UA) Negative (NEGATIVE) mg/dL Urine Ketones Negative (NEGATIVE) mg/dL Urine Occult Blood Negative (NEGATIVE) Urine Nitrite Negative (NEGATIVE) Urine Bilirubin Negative (NEGATIVE) Urine Urobilinogen 1.0 (0.2-1.0) EU/dL Ur Leukocyte Esterase Negative (NEGATIVE) Meds: Medications Generic Name Dose Route Start Last Admin Trade Name Freq PRN Reason Stop Dose Admin Sodium Chloride 1,000 mls @ 250 mls/hr 10/05/20 11:45 10/05/20 12:09 Normal Saline IV 250 mls/hr ASDIRECTED EMMY Administration Discontinued Medications Generic Name Dose Route Start Last Admin Trade Name Freq PRN Reason Stop Dose Admin Ondansetron HCl 2 packet 10/05/20 12:33 Take Home: Ondansetron 4 Mg Tab.Dis, 2 Tab Pack PO 10/05/20 12:34 ONETIME ONE - Re-Assessments/Exams Free Text/Narrative Re-Assessment/Exam: 10/05/20 12:38 Discussed lab results with patient. Will give the liter of fluids. Will send home with Zofran. Advised to either contact Dr. Gutierrez or Dr. Calderon on Wednesday in regards to ongoing issues with dietary intake, gastroparesis, constipation for any other changes they would suggest. Departure - Departure Time of Disposition: 12:40 Disposition: Home, Self-Care 01 Condition: Fair Clinical Impression: Nausea and vomiting - Discharge Information *PRESCRIPTION DRUG MONITORING PROGRAM REVIEWED*: No *COPY OF PRESCRIPTION DRUG MONITORING REPORT IN PATIENT CRISTEL: No Instructions: Nausea and Vomiting, Adult, [id number] Referrals: August Gutierrez MD [Primary Care Provider] - Forms: ED Department Discharge Additional Instructions: 1. Continue to push liquids 2. Zofran 4 mg ODT one tab every 6 hours as needed for nausea 3. Miralax daily 4. Call Dr. Gutierrez or Dr. Calderon's office on Wednesday for further recommendation Sepsis Event Note (ED) - Evaluation Sepsis Screening Result: No Definite Risk - Focused Exam Vital Signs: Vital Signs Temp Pulse Resp BP Pulse Ox 10/05/20 11:21 97.0 F 79 16 136/71 98 - My Orders Last 24 Hours: My Active Orders 10/05/20 11:45 Sodium Chloride 0.9% [Normal Saline] 1,000 ml IV ASDIRECTED - Assessment/Plan Last 24 Hours: My Active Orders 10/05/20 11:45 Sodium Chloride 0.9% [Normal Saline] 1,000 ml IV ASDIRECTED
[2020-10-05] MEDS ORDERED: Take Home: Ondansetron 4 MG Tab.DIS, 2 Tab Pack PO ONE (12:33)
== END 2020-10-05 13:26 | disposition home or self-care (01) ==
LOC: CC.ED 11:21
DX: R11.2 Nausea with vomiting, unspecified (principal); I10 Essential (primary) hypertension; E11.9 Type 2 diabetes mellitus without complications; Z79.899 Other long term (current) drug therapy
CPT/HCPCS: 36415; 80053; 81003; 85025; 86140; 99283; A9270-GY; J7030

== ENCOUNTER 2020-10-22 18:12 | Inpatient (IN) | payer MEDICARE, OTHER ==
--- NOTE | 2020-10-22 19:09 | EDM.PDOC ---
ED HPI GENERAL MEDICAL PROBLEM - General Chief Complaint: General Stated Complaint: weakness Time Seen by Provider: 10/22/20 18:40 Source of Information: Reports: Patient, Family History Limitations: Reports: No Limitations - History of Present Illness INITIAL COMMENTS - FREE TEXT/NARRATIVE: Sohail is a 70 year old male who presents to ER with weakness and back pain. Relates had gone to [place] today to have an EGD/colonoscopy due to gastroparesis/malnutrition and nausea. 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 Have tried different medications with limited results. Plan to try another new med and if doesn't work, may have to have a feeding tube back in as he continues to be weak and losing weight. Has a difficult time eating, is nauseated much of the time and had been previously told that "the food doesn't move through". He did have lactulose started and Senna and has been having BMs on occasion. Today, was scheduled to have a follow up to determine why he continues to have this to the degree he does. Had increased cough and excessive phlegm so they did not want to do the procedure. Was told he was "low on oxygen as well". Was sent home and advised to follow up with his primary. Took a 2 1/2 hour nap after returning home but when awoke was so weak he could hardly get out of bed. Has not had anything to eat or drink yet today. Admits did not try after he was sent home as took a tramadol and then a nap and hasn't felt like eating. Not aware of any fevers. Admits that has issues with cough and phlegm and at times, spits up a great deal. Were going to have him get IV fluids as he has a standing order but felt he needed to be evaluated as well. Duration: Chronic, Waxing/Waning Location: Reports: Generalized Quality: Reports: Ache Severity: Moderate Improves with: Reports: Rest Associated Symptoms: Reports: Cough, cough w sputum, Loss of Appetite, Malaise, Nausea/Vomiting, Shortness of Breath, Weakness. Denies: Chest Pain, Fever/Chills Treatments [facility] DBA: Reports: Other Medication(s) Other Treatments [employer] [employer] D[facility]: tramadol Back Pain Score (Numeric/FACES): 2 - Related Data Allergies Allergy/AdvReac Type Severity Reaction Status Date / Time No Known Allergies Allergy Verified 10/22/20 18:20 Home Meds: Home Meds Lisinopril 20 mg PO DAILY 10/07/18 [History] amLODIPine [Norvasc] 5 mg PO BEDTIME 10/07/18 [History] Metoclopramide [Reglan] 40 mg PO QID 09/30/20 [History] Omeprazole 20 mg PO BID 10/05/20 [History] Acetaminophen [Acetaminophen Extra Strength] 1,000 mg PO Q6H PRN 10/18/20 [History] Lactulose 15 ml PO DAILY PRN 10/18/20 [History] Sennosides/Docusate Sodium [Senna-Docusate Sodium Tablet] 1 tab PO BID 10/18/20 [History] traMADol HCl [Tramadol HCl] 50 mg PO Q4H PRN 10/18/20 [History] Past Medical History HEENT History: Reports: Impaired Vision Cardiovascular History: Reports: Hypertension Endocrine/Metabolic History: Reports: Diabetes, Type II Oncologic (Cancer) History: Reports: Esophageal - Past Surgical History HEENT Surgical History: Reports: None GI Surgical History: Reports: Appendectomy, Esophageal Dilatation, Other (See Below) Other GI Surgeries/Procedures: j tube Social & Family History - Family History Family Medical History: No Pertinent Family History - Tobacco Use Tobacco Use Status *Q: Former Tobacco User - Caffeine Use Caffeine Use: Reports: None ED ROS GENERAL - Review of Systems Review Of Systems: See Below Constitutional: Reports: Chills, Malaise, Weakness, Fatigue, Decreased Appetite. Denies: Fever HEENT: Denies: Ear Pain, Sinus Problem, Throat Pain Respiratory: Reports: Shortness of Breath, Cough, Sputum. Denies: Hemoptysis Cardiovascular: Denies: Chest Pain, Edema, Lightheadedness Endocrine: Reports: Fatigue GI/Abdominal: Reports: Decreased Appetite, Nausea. Denies: Abdominal Pain, Constipation, Diarrhea, Vomiting : Reports: No Symptoms Musculoskeletal: Reports: No Symptoms Skin: Reports: Pallor Neurological: Reports: Weakness ED EXAM, GENERAL - Physical Exam Exam: See Below Exam Limited By: No Limitations General Appearance: Alert, WD/WN, Mild Distress Ears: Normal External Exam, Normal TMs Nose: Normal Inspection, Normal Mucosa, No Blood Throat/Mouth: Normal Inspection, Normal Oropharynx Head: Normocephalic Neck: Normal Inspection, Supple, Non-Tender Respiratory/Chest: No Respiratory Distress, Decreased Breath Sounds Cardiovascular: Regular Rate, Rhythm GI/Abdominal: Normal Bowel Sounds, Soft, Non-Tender Extremities: Normal Inspection, No Pedal Edema Neurological: Alert, Oriented Skin Exam: Warm, Dry, Pallor Course - Vital Signs Last Recorded V/S: Last Vital Signs Temp 99.1 F 10/22/20 18:45 Pulse 76 10/22/20 18:45 Resp 16 10/22/20 19:05 BP 110/60 10/22/20 18:13 Pulse Ox 95 10/22/20 19:05 - Orders/Labs/Meds Orders: Active Orders 24 hr Category Date Time Status Oxygen Therapy, ED [RC] ASDIRECTED Care 10/22/20 18:15 Active CXR [Chest 2V] [CR] Stat Exams 10/22/20 18:33 Taken CULTURE BLOOD [BC] Stat Lab 10/22/20 19:37 Received CULTURE BLOOD [BC] Stat Lab 10/22/20 19:37 Received Sodium Chloride 0.9% [Normal Saline] 1,000 ml Med 10/22/20 19:00 Active IV ASDIRECTED Blood Culture x2 Reflex Set [OM.PC] Stat Oth 10/22/20 19:16 Ordered Medication Orders Sodium Chloride (Normal Saline) 1,000 mls @ 150 mls/hr IV ASDIRECTED [facility] Last Admin: 10/22/20 19:22 Dose: 150 mls/hr Documented by: EDIS Labs: Laboratory Tests 10/22/20 10/22/20 10/22/20 Range/Units 18:49 18:49 18:49 WBC 19.1 H (4.0-11.0) 10^3/uL RBC 3.64 L (4.50-6.00) x10^6/uL Hgb 12.2 L (14.0-18.0) g/dL Hct 35.8 L (42.0-52.0) % MCV 98.4 H (83.0-97.0) fL MCH 33.5 H (27.0-32.0) pg MCHC 34.1 (32.0-36.0) g/dL RDW Coeff of Matthew 12.5 (11.0-15.0) % Plt Count 451 H (150-400) 10^3/uL Add Manual Diff Yes Neutrophils % (Manual) 92 H (35-85) % Lymphocytes % (Manual) 3 L (21-55) % Monocytes % (Manual) 5 (2-12) % Absolute Neutrophils 17.57 H (1.80-7.00) 10^3/uL Lymphocytes # (Manual) 0.57 L (1.00-4.80) 10^3/uL Monocytes # (Manual) 0.96 H (0.00-0.80) 10^3/uL Sodium 140 (136-145) mEq/L Potassium 4.3 (3.5-5.0) mEq/L Chloride 102 (98-106) mEq/L Carbon Dioxide 26 (21-32) mmol/L BUN 27 H (7-18) mg/dL Creatinine 1.6 H (0.7-1.3) mg/dL Est Cr Clr Drug Dosing 46.69 mL/min Estimated GFR (MDRD) 43 L (>=60) mL/min Glucose 128 H (75-99) mg/dL Lactic Acid (0.4-2.0) mmol/L Calcium 9.0 (8.4-10.1) mg/dL Total Bilirubin 0.6 (0.0-1.0) mg/dL AST 22 (15-37) U/L ALT 29 (12-78) U/L Alkaline Phosphatase 136 H (46-116) U/L C-Reactive Protein 3.2 H (0.2-0.8) mg/dL Total Protein 6.7 (6.4-8.2) g/dL Albumin 3.1 L (3.4-5.0) g/dL SARS CoV-2 RNA Rapid MIKEY Negative (NEGATIVE) 10/22/20 Range/Units 19:20 WBC (4.0-11.0) 10^3/uL RBC (4.50-6.00) x10^6/uL Hgb (14.0-18.0) g/dL Hct (42.0-52.0) % MCV (83.0-97.0) fL MCH (27.0-32.0) pg MCHC (32.0-36.0) g/dL RDW Coeff of Matthew (11.0-15.0) % Plt Count (150-400) 10^3/uL Add Manual Diff Neutrophils % (Manual) (35-85) % Lymphocytes % (Manual) (21-55) % Monocytes % (Manual) (2-12) % Absolute Neutrophils (1.80-7.00) 10^3/uL Lymphocytes # (Manual) (1.00-4.80) 10^3/uL Monocytes # (Manual) (0.00-0.80) 10^3/uL Sodium (136-145) mEq/L Potassium (3.5-5.0) mEq/L Chloride (98-106) mEq/L Carbon Dioxide (21-32) mmol/L BUN (7-18) mg/dL Creatinine (0.7-1.3) mg/dL Est Cr Clr Drug Dosing mL/min Estimated GFR (MDRD) (>=60) mL/min Glucose (75-99) mg/dL Lactic Acid 1.8 (0.4-2.0) mmol/L Calcium (8.4-10.1) mg/dL Total Bilirubin (0.0-1.0) mg/dL AST (15-37) U/L ALT (12-78) U/L Alkaline Phosphatase (46-116) U/L C-Reactive Protein (0.2-0.8) mg/dL Total Protein (6.4-8.2) g/dL Albumin (3.4-5.0) g/dL SARS CoV-2 RNA Rapid MIKEY (NEGATIVE) Meds: Medications Generic Name Dose Route Start Last Admin Trade Name Freq PRN Reason Stop Dose Admin Sodium Chloride 1,000 mls @ 150 mls/hr 10/22/20 19:00 10/22/20 19:22 Normal Saline IV 150 mls/hr ASDIRECTED [facility] Administration - Re-Assessments/Exams Free Text/Narrative Re-Assessment/Exam: 10/22/20 19:18 WBC is high at 19.6, CRP 3.2. Creatinine 1.6. Chest xray shows infiltrate left upper and lower lobe. Is requiring 3 liters of oxygen to maintain sats greater than 92%. 10/22/20 19:20 Patient and family informed. Will admit to inpatient, Dr. Gutierrez to follow. Obtain blood cultures. Start IV antibiotics. Departure - Departure Time of Disposition: 20:02 Disposition: Admitted As Inpatient 67 Condition: Fair Clinical Impression: Pneumonia - Discharge Information *PRESCRIPTION DRUG MONITORING PROGRAM REVIEWED*: No *COPY OF PRESCRIPTION DRUG MONITORING REPORT IN PATIENT CRISTEL: No Instructions: Community-Acquired Pneumonia, Adult Forms: ED Department Discharge Sepsis Event Note (ED) - Evaluation Sepsis Screening Result: No Definite Risk - Focused Exam Vital Signs: Vital Signs Temp Pulse Resp BP Pulse Ox 10/22/20 19:05 16 95 10/22/20 18:45 99.1 F 76 16 95 10/22/20 18:13 100.6 F 117 H 20 110/60 90 L - Problem List & Annotations (1) Pneumonia SNOMED Code(s): 781803188 Code(s): J18.9 - PNEUMONIA, UNSPECIFIED ORGANISM Status: Acute Priority: High Current Visit: Yes Annotation/Comment:: Left upper lobe pneumonia, Left lower lobe pneumonia (2) Nausea and vomiting SNOMED Code(s): 49265659 Code(s): R11.2 - NAUSEA WITH VOMITING, UNSPECIFIED Status: Chronic Priority: Medium Current Visit: Yes Qualifiers: Vomiting type: unspecified Vomiting Intractability: unspecified Qualified Code(s): R11.2 - Nausea with vomiting, unspecified (3) Esophageal dysphagia SNOMED Code(s): 81979369 Code(s): R13.10 - DYSPHAGIA, UNSPECIFIED Status: Chronic Priority: Medium Current Visit: Yes (4) Type 2 diabetes mellitus SNOMED Code(s): 27095065 Code(s): E11.9 - TYPE 2 DIABETES MELLITUS WITHOUT COMPLICATIONS Status: Chronic Priority: Medium Current Visit: Yes - Problem List Review Problem List Initiated/Reviewed/Updated: Yes - My Orders Last 24 Hours: My Active Orders 10/22/20 18:15 Oxygen Therapy, ED [RC] ASDIRECTED 10/22/20 18:33 CXR [Chest 2V] [CR] Stat 10/22/20 19:00 Sodium Chloride 0.9% [Normal Saline] 1,000 ml IV ASDIRECTED 10/22/20 19:16 Blood Culture x2 Reflex Set [OM.PC] Stat 10/22/20 19:37 CULTURE BLOOD [BC] Stat CULTURE BLOOD [BC] Stat - Assessment/Plan Admission H&P: Please use this note as an admission H&P Last 24 Hours: My Active Orders 10/22/20 18:15 Oxygen Therapy, ED [] ASDIRECTED 10/22/20 18:33 CXR [Chest 2V] [CR] Stat 10/22/20 19:00 Sodium Chloride 0.9% [Normal Saline] 1,000 ml IV ASDIRECTED 10/22/20 19:16 Blood Culture x2 Reflex Set [OM.PC] Stat 10/22/20 19:37 CULTURE BLOOD [BC] Stat CULTURE BLOOD [BC] Stat Assessment:: Left Upper and Lower Lobe Pneumonia Nausea and vomiting Type 2 DM Dysphagia Plan: Admit inpatient to Dr. Gutierrez. Start IV Rocephin and Zithromax. Sputum Culture. PRN nebs. IV fluids as history of nausea and vomiting/elevated BUN/creatinine.
[2020-10-22] MEDS: Sodium Chloride 0.9% 1,000 ML IV SCH (19:22)
[2020-10-22] MEDS ORDERED: traMADol 50 MG Tab PO PRN (20:33)
[2020-10-22] MEDS ORDERED: Lactulose Soln 10 GM/15 ML 30 ML UD Cup PO PRN (20:33)
[2020-10-22] MEDS ORDERED: Acetaminophen 325 MG Tab PO PRN (20:56)
[2020-10-22] MEDS ORDERED: Albuterol/Ipratropium 3.0-0.5 MG/3 ML Neb Soln NEB PRN (20:56)
[2020-10-22] MEDS ORDERED: cefTRIAXone 1 GM Vial IVPUSH SCH (20:56)
[2020-10-22] MEDS ORDERED: Ondansetron 4 MG Tab.DIS PO PRN (20:56)
[2020-10-22] MEDS ORDERED: Azithromycin 500 MG in Sodium Chloride 0.9% 250 ML IV SCH (20:56)
[2020-10-22] MEDS ORDERED: Pantoprazole 40 MG Vial IVPUSH SCH (20:56)
[2020-10-22] MEDS ORDERED: Ondansetron 4 MG/2 ML SDV IV PRN (20:56)
[2020-10-22] MEDS ORDERED: traMADol 50 MG Tab ONE (22:26)
[2020-10-23] MEDS: Sodium Chloride 0.9% 1,000 ML IV SCH ×3 (03:32→17:46)
[2020-10-23] MEDS ORDERED: Lisinopril 20 MG Tab PO SCH (08:00)
[2020-10-23] MEDS ORDERED: Enoxaparin 40 MG/0.4 ML Syringe SUBCUT SCH (08:00)
[2020-10-23] MEDS ORDERED: traMADol 50 MG Tab PO PRN (08:07)
[2020-10-23] MEDS ORDERED: Lactulose Soln 10 GM/15 ML 30 ML UD Cup PO PRN (08:11)
[2020-10-23] MEDS ORDERED: Ondansetron 4 MG Tab.DIS PO PRN (08:14)
[2020-10-23] MEDS ORDERED: Ondansetron 4 MG/2 ML SDV IV PRN (08:14)
[2020-10-23] MEDS ORDERED: Pantoprazole 40 MG Vial IVPUSH SCH (08:15)
[2020-10-23] MEDS: Lisinopril 20 MG Tab PO SCH (08:25)
[2020-10-23] MEDS: Enoxaparin 40 MG/0.4 ML Syringe SUBCUT SCH (08:47)
--- NOTE | 2020-10-23 13:35 | PN ---
DATE: 10/23/2020 S: Loi was admitted last night by for left-sided pneumonia. He was down to get an EGD with regard to his esophageal cancer and his gastroparesis and ultimately his sats were low and he was coughing, so they sent him home. No workup was done. He ultimately came to our emergency room and was found to have a pneumonia. At the time of his admission, his white count was elevated at 19,000 with 91% neutrophils on his diff. Kidney function, electrolytes were all stable. His lactic acid was 1.8, CRP was 3.2. Since admission, he has maintained his sats with supplemental O2. He is still coughing and getting a lot of sputum up. We do have a sample that is pending. He is currently on Zithromax and Rocephin. O: GENERAL: The patient is pleasant, alert, and cooperative. He appears in no distress. VITAL SIGNS: Temp at this time is 98.9. HEENT: Grossly benign. NECK: His neck veins are flat. LUNGS: Lung sounds are actually quite clear. Cannot auscultate any obvious rales in the left chest, but he does have some rhonchi and maybe a little bit of diminished breath sounds. CARDIAC: Tones are regular. ABDOMEN: Soft. EXTREMITIES: He has no peripheral edema. ASSESSMENT: 1. COMMUNITY-ACQUIRED PNEUMONIA. 2. ESOPHAGEAL CANCER. 3. SEVERE GASTROPARESIS. P: We will continue with current IV antibiotics. I had a long discussion with the patient as he was supposed to start erythromycin today for his gastroparesis. We are going to hold off on that until he is discharged and finished with his Zithromax. Awaiting sputum cultures. No other changes. VIANCA/WILFRID /[id number]
[2020-10-23] MEDS: Pantoprazole 40 MG Vial IVPUSH SCH (15:34)
[2020-10-23] MEDS: cefTRIAXone 1 GM Vial IVPUSH SCH (19:34)
[2020-10-23] MEDS: Acetaminophen 325 MG Tab PO PRN (19:41)
[2020-10-23] MEDS ORDERED: Azithromycin 500 MG in Sodium Chloride 0.9% 250 ML IV SCH (20:00)
[2020-10-23] MEDS ORDERED: amLODIPine 2.5 MG Tab PO SCH ×2 (20:00)
[2020-10-24] MEDS: Sodium Chloride 0.9% 1,000 ML IV SCH ×4 (01:31→21:30)
[2020-10-24] MEDS: Acetaminophen 325 MG Tab PO PRN ×3 (03:19→19:30)
[2020-10-24] MEDS: Lisinopril 20 MG Tab PO SCH (07:21)
[2020-10-24] MEDS: Enoxaparin 40 MG/0.4 ML Syringe SUBCUT SCH (07:21)
[2020-10-24 07:23] LABS: CHLORIDE,CL 105 mEq/L (98-106); SODIUM,NA 139 mEq/L (136-145)
--- NOTE | 2020-10-24 10:52 | PN ---
DATE: 10/24/2020 S: Sohail continues to slowly improve. He is eating a little bit better. He has had no real significant issues with fever since yesterday evening. He has not had any complaints of chest pain. He is producing sputum. His final sputum culture shows normal barb. Concern obviously with aspiration given his chronic dysphagia. He really has no other complaints. O: NECK: Neck veins are flat. LUNGS: His lung sounds actually appear quite clear. There are no audible rales. There is still some rhonchi and a little bit of expiratory wheeze, more on the left side. CARDIAC: Tones are regular. ABDOMEN: Soft. EXTREMITIES: He has no peripheral edema. ASSESSMENT: 1. PNEUMONIA, POSSIBLY ASPIRATION. 2. ESOPHAGEAL CANCER. 3. CHRONIC DYSPHAGIA RELATED TO ABOVE. 4. SEVERE GASTROPARESIS. P: The patient is still running some low-grade temps at times. His CRP is climbing. His white counts are coming down, but I am going to put him on Cleocin just to cover for better aspiration possibility. He is feeling much better. He is still very weak, so I will get PT to see him for strengthening. He is likely going to need feeding tube placement in the near future and likely distal to the stomach given his gastroparesis. We are going to try to facilitate this once patient is stable for discharge. VIANCA/WILFRID /[id number]
[2020-10-24] MEDS: Albuterol/Ipratropium 3.0-0.5 MG/3 ML Neb Soln NEB SCH ×3 (11:07→19:38)
[2020-10-24] MEDS ORDERED: Clindamycin Phosphate in D5W 300 MG in Premix Bag 1 BAG IV SCH ×2 (12:00)
[2020-10-24] MEDS: Pantoprazole 40 MG Vial IVPUSH SCH (15:46)
[2020-10-24] MEDS: cefTRIAXone 1 GM Vial IVPUSH SCH (19:25)
[2020-10-24] MEDS ORDERED: Azithromycin 500 MG in Sodium Chloride 0.9% 250 ML IV SCH (20:00)
--- NOTE | 2020-10-24 23:26 | PCM.PN ---
- General Info Date of Service: 10/24/20 Admission Dx/Problem (Free Text): afib with rapid ventricular rate, hypotensive, esophageal cancer, pneumonia Subjective Update: Was notified by the nursing staff that his heart rate was elevated and that he remained hypotensive. He denies feeling palpations or lightheaded at this time. When evaluated he denies any chest pain, no SOB or increase in lightheadedness. I did call Dr. Gutierrez his primary. He is concerned about putting him on a drip here as he can not be monitored close enough as he is already hypotensive throughout the day. He has been getting fluids at 150 ml throughout admission and he remained hypotensive. He is currently on rocephin and zithromax for pneumonia. [id number] I did call [facility] [address] Hernandez, hospitalist and he is willing to accept in [facility]. Will transfer with ALS ambulance from [place]. Functional Status: Reports: Pain Controlled - Review of Systems General: Reports: Fever, Other (99.1 currently) HEENT: Reports: No Symptoms Pulmonary: Reports: No Symptoms Cardiovascular: Denies: Chest Pain Gastrointestinal: Reports: Difficulty Swallowing Neurological: Reports: No Symptoms - Patient Data Vitals - Most Recent: Last Vital Signs Temp 100.0 F 10/24/20 21:00 Pulse 120 H 10/24/20 20:00 Resp 20 10/24/20 20:00 BP 101/67 10/24/20 20:00 Pulse Ox 94 L 10/24/20 20:00 Weight - Most Recent: 167 lb I&O - Last 24 Hours: Intake & Output 10/24/20 10/24/20 10/25/20 14:59 22:59 06:59 Intake Total 1000 1000 Balance 1000 1000 Lab Results Last 24 Hours: Laboratory Results - last 24 hr 10/24/20 10/24/20 10/24/20 Range/Units 07:05 07:05 14:09 WBC 14.8 H (4.0-11.0) 10^3/uL RBC 2.93 L (4.50-6.00) x10^6/uL Hgb 9.8 L 9.4 L (14.0-18.0) g/dL Hct 29.3 L (42.0-52.0) % MCV 100.0 H (83.0-97.0) fL MCH 33.4 H (27.0-32.0) pg MCHC 33.4 (32.0-36.0) g/dL RDW Coeff of Matthew 12.7 (11.0-15.0) % Plt Count 280 (150-400) 10^3/uL Immature Gran % (Auto) 0.3 (0.0-4.9) % Neut % (Auto) 90.1 H (41-71) % Lymph % (Auto) 3.4 L (24-44) % [place] % (Auto) 4.9 (0-10) % Eos % (Auto) 1.1 (0-6) % Baso % (Auto) 0.2 (0-1) % Neut # (Auto) 13.35 H (1.80-8.00) x10^3/uL Lymph # (Auto) 0.50 L (0.60-5.00) 10^3/uL [place] # (Auto) 0.72 (0.00-1.50) 10^3/uL Eos # (Auto) 0.17 (0.00-1.50) 10^3/uL Baso # (Auto) 0.03 (0.00-0.50) 10^3/uL Immature Gran # (Auto) 0.04 (0.00-0.49) 10^3/uL Sodium 139 (136-145) mEq/L Potassium 4.2 D (3.5-5.0) mEq/L Chloride 105 (98-106) mEq/L Carbon Dioxide 24 (21-32) mmol/L BUN 21 H (7-18) mg/dL Creatinine 1.2 (0.7-1.3) mg/dL Est Cr Clr Drug Dosing 62.25 mL/min Estimated GFR (MDRD) > 60 (>=60) mL/min Glucose 94 (75-99) mg/dL Calcium 7.9 L (8.4-10.1) mg/dL Lactate Dehydrogenase (100-190) U/L Creatine Kinase (35-232) U/L Troponin I High Sens (<=76) pg/mL C-Reactive Protein 23.8 H (0.2-0.8) mg/dL 10/24/20 Range/Units 21:48 WBC (4.0-11.0) 10^3/uL RBC (4.50-6.00) x10^6/uL Hgb (14.0-18.0) g/dL Hct (42.0-52.0) % MCV (83.0-97.0) fL MCH (27.0-32.0) pg MCHC (32.0-36.0) g/dL RDW Coeff of Matthew (11.0-15.0) % Plt Count (150-400) 10^3/uL Immature Gran % (Auto) (0.0-4.9) % Neut % (Auto) (41-71) % Lymph % (Auto) (24-44) % [place] % (Auto) (0-10) % Eos % (Auto) (0-6) % Baso % (Auto) (0-1) % Neut # (Auto) (1.80-8.00) x10^3/uL Lymph # (Auto) (0.60-5.00) 10^3/uL [place] # (Auto) (0.00-1.50) 10^3/uL Eos # (Auto) (0.00-1.50) 10^3/uL Baso # (Auto) (0.00-0.50) 10^3/uL Immature Gran # (Auto) (0.00-0.49) 10^3/uL Sodium (136-145) mEq/L Potassium (3.5-5.0) mEq/L Chloride (98-106) mEq/L Carbon Dioxide (21-32) mmol/L BUN (7-18) mg/dL Creatinine (0.7-1.3) mg/dL Est Cr Clr Drug Dosing mL/min Estimated GFR (MDRD) (>=60) mL/min Glucose (75-99) mg/dL Calcium (8.4-10.1) mg/dL Lactate Dehydrogenase 78 L (100-190) U/L Creatine Kinase 55 (35-232) U/L Troponin I High Sens 15.7 (<=76) pg/mL C-Reactive Protein (0.2-0.8) mg/dL Tristan Results Last 24 Hours: Microbiology 10/22/20 19:37 Aerobic Blood Culture - Preliminary Blood - Venous NO GROWTH AFTER 2 DAYS Anaerobic Blood Culture - Preliminary NO GROWTH AFTER 2 DAYS 10/22/20 19:37 Aerobic Blood Culture - Preliminary Blood - Venous - Lab Draw NO GROWTH AFTER 2 DAYS Anaerobic Blood Culture - Preliminary NO GROWTH AFTER 2 DAYS 10/22/20 23:13 Gram Stain - Final Sputum - Expectorated Sputum Culture - Final Med Orders - Current: Current Medications Acetaminophen (Acetaminophen 325 Mg Tab) 650 mg PO Q4H PRN PRN Reason: Pain (Mild 1-3)/fever Last Admin: 10/24/20 19:30 Dose: 650 mg Documented by: Albuterol/Ipratropium (Albuterol/Ipratropium 3.0-0.5 Mg/3 Ml Neb Soln) 3 ml NEB QIDRT [facility] Last Admin: 10/24/20 19:38 Dose: 3 ml Documented by: Amlodipine Besylate (Amlodipine 2.5 Mg Tab) 5 mg PO BEDTIME [facility] Last Admin: 10/23/20 19:39 Dose: 5 mg Documented by: Ceftriaxone Sodium (Ceftriaxone 1 Gm Vial) 1 gm IVPUSH Q24H [facility] Last Admin: 10/24/20 19:25 Dose: 1 gm Documented by: Enoxaparin Sodium (Enoxaparin 40 Mg/0.4 Ml Syringe) 40 mg SUBCUT Q24H [facility] Last Admin: 10/24/20 07:21 Dose: 40 mg Documented by: Azithromycin 500 mg/ Sodium (Chloride) 250 mls @ 250 mls/hr IV Q24H [facility] Last Admin: 10/24/20 19:33 Dose: 250 mls/hr Documented by: Sodium Chloride (Normal Saline) 1,000 mls @ 150 mls/hr IV ASDIRECTED [facility] Last Admin: 10/24/20 21:30 Dose: 150 mls/hr Documented by: Lactulose (Lactulose Soln 10 Gm/15 Ml 30 Ml Ud Cup) 10 gm PO DAILY PRN PRN Reason: Constipation Lisinopril (Lisinopril 20 Mg Tab) 20 mg PO DAILY [facility] Last Admin: 10/24/20 07:21 Dose: 20 mg Documented by: Ondansetron HCl (Ondansetron 4 Mg Tab.Dis) 4 mg PO Q4H PRN PRN Reason: nausea, able to take PO Last Admin: 10/23/20 20:02 Dose: 4 mg Documented by: Ondansetron HCl (Ondansetron 4 Mg/2 Ml Sdv) 4 mg IV Q4H PRN PRN Reason: Nausea/Vomiting Pantoprazole Sodium (Pantoprazole 40 Mg Vial) 40 mg IVPUSH Q24H [facility] Last Admin: 10/24/20 15:46 Dose: 40 mg Documented by: Senna/Docusate Sodium (Docusate Sodium/Sennosides 50-8.6 Mg Tab) 1 tab PO BID [facility] Last Admin: 10/24/20 19:30 Dose: 1 tab Documented by: Tramadol HCl (Tramadol 50 Mg Tab) 50 mg PO Q4H PRN PRN Reason: Pain Last Admin: 10/23/20 22:15 Dose: 50 mg Documented by: Discontinued Medications Acetaminophen (Acetaminophen 325 Mg Tab) 650 mg PO Q4H PRN PRN Reason: Pain (Mild 1-3)/fever Albuterol/Ipratropium (Albuterol/Ipratropium 3.0-0.5 Mg/3 Ml Neb Soln) 3 ml NEB Q4H PRN PRN Reason: Dyspnea Amlodipine Besylate (Amlodipine 2.5 Mg Tab) 5 mg PO BEDTIME [facility] Ceftriaxone Sodium (Ceftriaxone 1 Gm Vial) 1 gm IVPUSH Q24H [facility] Last Admin: 10/22/20 21:43 Dose: 1 gm Documented by: Enoxaparin Sodium (Enoxaparin 40 Mg/0.4 Ml Syringe) 40 mg SUBCUT Q24H [facility] Last Admin: 10/23/20 08:25 Dose: Not Given Documented by: Sodium Chloride (Normal Saline) 1,000 mls @ 150 mls/hr IV ASDIRECTED [facility] Last Admin: 10/23/20 03:32 Dose: 150 mls/hr Documented by: Azithromycin 500 mg/ Sodium (Chloride) 250 mls @ 250 mls/hr IV Q24H [facility] Last Admin: 10/22/20 21:42 Dose: 250 mls/hr Documented by: Azithromycin 500 mg/ Sodium (Chloride) 250 mls @ 250 mls/hr IV Q24H [facility] Last Admin: 10/23/20 19:37 Dose: 250 mls/hr Documented by: Sodium Chloride (Normal Saline) 1,000 mls @ 150 mls/hr IV ASDIRECTED [facility] Last Admin: 10/24/20 08:55 Dose: 150 mls/hr Documented by: Clindamycin Phosphate 300 mg/ (Premix) 50 mls @ 100 mls/hr IV Q6H [facility] Last Admin: 10/24/20 11:06 Dose: 100 mls/hr Documented by: Lactulose (Lactulose Soln 10 Gm/15 Ml 30 Ml Ud Cup) 10 gm PO DAILY PRN PRN Reason: Constipation Lisinopril (Lisinopril 20 Mg Tab) 20 mg PO DAILY [facility] Last Admin: 10/23/20 08:25 Dose: Not Given Documented by: Ondansetron HCl (Ondansetron 4 Mg/2 Ml Sdv) 4 mg IV Q4H PRN PRN Reason: Nausea/Vomiting Ondansetron HCl (Ondansetron 4 Mg Tab.Dis) 4 mg PO Q4H PRN PRN Reason: nausea, able to take PO Pantoprazole Sodium (Pantoprazole 40 Mg Vial) 40 mg IVPUSH Q24H [facility] Last Admin: 10/22/20 21:45 Dose: 40 mg Documented by: Pantoprazole Sodium (Pantoprazole 40 Mg Vial) 40 mg IVPUSH Q24H [facility] Senna/Docusate Sodium (Docusate Sodium/Sennosides 50-8.6 Mg Tab) 1 tab PO BID [facility] Last Admin: 10/23/20 08:25 Dose: Not Given Documented by: Tramadol HCl (Tramadol 50 Mg Tab) 50 mg PO Q4H PRN PRN Reason: Pain Last Admin: 10/22/20 22:04 Dose: 50 mg Documented by: Tramadol HCl (Tramadol 50 Mg Tab) Confirm Administered Dose 50 mg .ROUTE .STK- MED ONE Stop: 10/22/20 22:27 Last Admin: 10/22/20 23:18 Dose: Not Given Documented by: - Exam Quality Assessment: Supplemental Oxygen (2L) General: Alert, Oriented Lungs: Clear to Auscultation, Normal Respiratory Effort Cardiovascular: Irregular Rhythm, Tachycardia GI/Abdominal Exam: Normal Bowel Sounds, Soft Psy/Mental Status: Alert #1 Interpretation Rhythm: A-Fib Rate (Beats/Min): 140 P-Wave: Absent QRS: Normal ST-T: Normal QT: Normal Comparison: Change From Previous EKG - Patient Data Lab Results Last 24 hrs: Laboratory Results - last 24 hr 10/24/20 10/24/20 10/24/20 Range/Units 07:05 07:05 14:09 WBC 14.8 H (4.0-11.0) 10^3/uL RBC 2.93 L (4.50-6.00) x10^6/uL Hgb 9.8 L 9.4 L (14.0-18.0) g/dL Hct 29.3 L (42.0-52.0) % MCV 100.0 H (83.0-97.0) fL MCH 33.4 H (27.0-32.0) pg MCHC 33.4 (32.0-36.0) g/dL RDW Coeff of Matthew 12.7 (11.0-15.0) % Plt Count 280 (150-400) 10^3/uL Immature Gran % (Auto) 0.3 (0.0-4.9) % Neut % (Auto) 90.1 H (41-71) % Lymph % (Auto) 3.4 L (24-44) % [place] % (Auto) 4.9 (0-10) % Eos % (Auto) 1.1 (0-6) % Baso % (Auto) 0.2 (0-1) % Neut # (Auto) 13.35 H (1.80-8.00) x10^3/uL Lymph # (Auto) 0.50 L (0.60-5.00) 10^3/uL [place] # (Auto) 0.72 (0.00-1.50) 10^3/uL Eos # (Auto) 0.17 (0.00-1.50) 10^3/uL Baso # (Auto) 0.03 (0.00-0.50) 10^3/uL Immature Gran # (Auto) 0.04 (0.00-0.49) 10^3/uL Sodium 139 (136-145) mEq/L Potassium 4.2 D (3.5-5.0) mEq/L Chloride 105 (98-106) mEq/L Carbon Dioxide 24 (21-32) mmol/L BUN 21 H (7-18) mg/dL Creatinine 1.2 (0.7-1.3) mg/dL Est Cr Clr Drug Dosing 62.25 mL/min Estimated GFR (MDRD) > 60 (>=60) mL/min Glucose 94 (75-99) mg/dL Calcium 7.9 L (8.4-10.1) mg/dL Lactate Dehydrogenase (100-190) U/L Creatine Kinase (35-232) U/L Troponin I High Sens (<=76) pg/mL C-Reactive Protein 23.8 H (0.2-0.8) mg/dL 10/24/20 Range/Units 21:48 WBC (4.0-11.0) 10^3/uL RBC (4.50-6.00) x10^6/uL Hgb (14.0-18.0) g/dL Hct (42.0-52.0) % MCV (83.0-97.0) fL MCH (27.0-32.0) pg MCHC (32.0-36.0) g/dL RDW Coeff of Matthew (11.0-15.0) % Plt Count (150-400) 10^3/uL Immature Gran % (Auto) (0.0-4.9) % Neut % (Auto) (41-71) % Lymph % (Auto) (24-44) % [place] % (Auto) (0-10) % Eos % (Auto) (0-6) % Baso % (Auto) (0-1) % Neut # (Auto) (1.80-8.00) x10^3/uL Lymph # (Auto) (0.60-5.00) 10^3/uL [place] # (Auto) (0.00-1.50) 10^3/uL Eos # (Auto) (0.00-1.50) 10^3/uL Baso # (Auto) (0.00-0.50) 10^3/uL Immature Gran # (Auto) (0.00-0.49) 10^3/uL Sodium (136-145) mEq/L Potassium (3.5-5.0) mEq/L Chloride (98-106) mEq/L Carbon Dioxide (21-32) mmol/L BUN (7-18) mg/dL Creatinine (0.7-1.3) mg/dL Est Cr Clr Drug Dosing mL/min Estimated GFR (MDRD) (>=60) mL/min Glucose (75-99) mg/dL Calcium (8.4-10.1) mg/dL Lactate Dehydrogenase 78 L (100-190) U/L Creatine Kinase 55 (35-232) U/L Troponin I High Sens 15.7 (<=76) pg/mL C-Reactive Protein (0.2-0.8) mg/dL Result Diagrams: 10/24/20 14:09 10/24/20 07:05 Tristan Results Last 24 hrs: Microbiology 10/22/20 19:37 Aerobic Blood Culture - Preliminary Blood - Venous NO GROWTH AFTER 2 DAYS Anaerobic Blood Culture - Preliminary NO GROWTH AFTER 2 DAYS 10/22/20 19:37 Aerobic Blood Culture - Preliminary Blood - Venous - Lab Draw NO GROWTH AFTER 2 DAYS Anaerobic Blood Culture - Preliminary NO GROWTH AFTER 2 DAYS 10/22/20 23:13 Gram Stain - Final Sputum - Expectorated Sputum Culture - Final Sepsis Event Note - Evaluation Sepsis Screening Result: No Definite Risk - Focused Exam Vital Signs: Vital Signs Temp Pulse Resp BP Pulse Ox 10/24/20 21:00 100.0 F 10/24/20 20:00 100.7 F H 120 H 20 101/67 94 L 10/24/20 18:00 106/55 L 10/24/20 16:00 98.2 F 91 18 92/48 L 96 10/24/20 11:27 99.2 F 101 H 78/48 L - Problem List & Annotations (1) Atrial fibrillation with rapid ventricular response SNOMED Code(s): 558391548573205 Code(s): I48.91 - UNSPECIFIED ATRIAL FIBRILLATION Status: Acute Priority: High Current Visit: Yes (2) Pneumonia SNOMED Code(s): 538719952 Code(s): J18.9 - PNEUMONIA, UNSPECIFIED ORGANISM Status: Acute Priority: High Current Visit: Yes Annotation/Comment:: Left upper lobe pneumonia, Left lower lobe pneumonia (3) Esophageal dysphagia SNOMED Code(s): 70703977 Code(s): R13.10 - DYSPHAGIA, UNSPECIFIED Status: Chronic Priority: Medium Current Visit: Yes - Problem List Review Problem List Initiated/Reviewed/Updated: Yes - My Orders Last 24 Hours: My Active Orders 10/24/20 21:48 Cardiac Monitoring [RC] 0800,1999 EKG 12 Lead [EK] Stat 10/24/20 23:06 Ready for Discharge [RC] PER UNIT ROUTINE - Assessment Assessment:: new onset a fib with rapid ventricular rate. - Plan Plan:: Transfer to [facility] per [facility] ambulance [facility] Risks of non transfer include worsening of condition and possible . risks of transfer would include worsening enroute. benefits of transfer would include higher level of care, specialist. benefits of nontransfer would include being closer to home. Pt and agree with transfer and wish to proceed.
[2020-10-25 00:32] VITALS: BP 102/57; PULSE 138
== END 2020-10-25 00:20 | DRG 195 ==
LOC: CC.ED 18:12 → CC.MS 20:02 → UNDOADMOB 20:02 → UNDOADMIN 20:02 → CC.MS 20:02
PROVIDERS: ADMIT Physician Assistant Medical; ATTEND Family Medicine
DX: J18.9 Pneumonia, unspecified organism (principal); R13.10 Dysphagia, unspecified; Z79.899 Other long term (current) drug therapy; H54.7 Unspecified visual loss; I10 Essential (primary) hypertension; Z85.01 Personal history of malignant neoplasm of esophagus; Z90.49 Acquired absence of other specified parts of digestive tract; E46 Unspecified protein-calorie malnutrition; R11.0 Nausea; R53.1 Weakness; Z87.891 Personal history of nicotine dependence; Z20.822 Contact with and (suspected) exposure to COVID-19; I48.91 Unspecified atrial fibrillation; E11.43 Type 2 diabetes mellitus with diabetic autonomic (poly)neuropathy; K31.84 Gastroparesis
CPT/HCPCS: 36415; 71046; 80048; 80053; 82550; 83605; 83615; 84484; 85018; 85025; 86140; 87040; 87070; 87205; 93005; 97161-GP; 99285-25; A9270-GY; C9113; J0456; J0696; J1650; J3490; J7030; J7050; J7620-GY; U0002

== ENCOUNTER 2020-11-28 09:11 | Inpatient (IN) | payer MEDICARE, OTHER ==
[2020-11-28] MEDS ORDERED: Polyethylene Glycol 3350 Powder 17 GM Packet JTUBE PRN (14:20)
[2020-11-28] MEDS ORDERED: 50% Dextrose in Water 50 ML Syringe IVPUSH PRN (14:20)
[2020-11-28] MEDS ORDERED: Lactulose Soln 10 GM/15 ML 30 ML UD Cup JTUBE PRN (14:20)
[2020-11-28] MEDS ORDERED: Acetaminophen 500 MG Tab JTUBE PRN (14:20)
[2020-11-28] MEDS ORDERED: Glucagon,Human Recombinant 1 MG Vial IM PRN (14:20)
[2020-11-28] MEDS ORDERED: Sodium Chloride 0.65% Nasal Spray 45 ML Bottle NASBOTH PRN (15:18)
[2020-11-28] MEDS: Insulin Glarg,Human.Rec.Analog 100 Unit/ML SUBCUT SCH (20:57)
[2020-11-28] MEDS: Acetaminophen 325 MG Tab PO PRN (21:40)
[2020-11-28] MEDS: Melatonin 3 MG Tab JTUBE PRN (21:41)
--- NOTE | 2020-11-29 04:11 | HP ---
CHIEF COMPLAINT: Swing bed placement. HISTORY: Sohail is a pleasant 70-year-old male who presents for swing bed admission at [facility]. Patient had an extended course at [place] after being transferred for aspiration pneumonia. He has a known history of esophageal cancer, which is graded at stage IV. He has been having issues with swallowing and now has a feeding tube. He needs to get stronger before he can continue chemotherapy for his esophageal malignancy. Patient left here for his respiratory distress and ongoing aspiration. He ended up going into AFib when he left [facility]. He is now anticoagulated, has completed his course of antibiotics, now needs strengthening from PT and nutritional support with tube feeds. PAST MEDICAL HISTORY: Includes a history of esophageal cancer, hypertension, type 2 diabetes, and BPH. He had a recent onset of AFib. PAST SURGICAL HISTORY: Includes an appendectomy, esophagectomy. ALLERGIES: NONE. MEDICATIONS: See chart. SOCIAL HISTORY: Patient is essentially nonsmoker, nondrinker. 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 PHYSICAL EXAMINATION: GENERAL: He is pleasant and cooperative, appears slightly cachectic, but alert and oriented. HEENT: Grossly benign. No jaundice noted. No scleral icterus. NECK: Veins are flat. No adenopathy or supraclavicular nodes felt. LUNGS: Sounds are diminished, but clear. CARDIAC: Tones are irregular, but controlled. ABDOMEN: Soft. Feeding tube present just above the umbilicus and in good position with no erythema or drainage. No guarding, rebound, or rigidity. EXTREMITIES: Without edema. Pulses are palpable in the feet. ASSESSMENT: 1. SWING BED PLACEMENT. 2. ESOPHAGEAL CANCER. 3. ASPIRATION PNEUMONIA, IMPROVED. 4. WEAKNESS. 5. CHRONIC ATRIAL FIBRILLATION. 6. HYPERTENSION. PLAN: Tube feed orders are given and medications ordered. Please see chart. Patient will have PT consult for strengthening and management will be expectant. VIANCA/WILFRID /[id number]
[2020-11-29] MEDS: Ondansetron 4 MG/2 ML SDV IVPUSH PRN ×3 (05:21→18:34)
[2020-11-29] MEDS: amLODIPine 10 MG Tab JTUBE SCH (07:25)
[2020-11-29] MEDS: Amiodarone 200 MG Tab JTUBE SCH (07:26)
[2020-11-29] MEDS: Lisinopril 5 MG Tab JTUBE SCH (07:26)
[2020-11-29] MEDS: Lidocaine 5% 700 MG Patch TOP SCH (07:27)
[2020-11-29] MEDS: Warfarin 5 MG Tab JTUBE SCH (07:28)
[2020-11-29] MEDS: Pantoprazole 40 MG Vial IV SCH (07:28)
[2020-11-29] MEDS ORDERED: Albuterol/Ipratropium 3.0-0.5 MG/3 ML Neb Soln NEB ONE (10:06)
[2020-11-29] MEDS: Acetaminophen 325 MG Tab PO PRN ×2 (12:56→21:04)
[2020-11-29] MEDS: Albuterol/Ipratropium 3.0-0.5 MG/3 ML Neb Soln NEB PRN (18:34)
[2020-11-29] MEDS: Ferrous Sulfate Solution 220 MG/5 ML ML 473 ML Bottle JTUBE SCH (19:53)
[2020-11-29] MEDS: Insulin Glarg,Human.Rec.Analog 100 Unit/ML SUBCUT SCH (20:07)
[2020-11-29] MEDS: Melatonin 3 MG Tab JTUBE PRN (21:04)
[2020-11-30] MEDS: Ondansetron 4 MG/2 ML SDV IVPUSH PRN ×2 (01:06→08:00)
[2020-11-30] MEDS: Albuterol/Ipratropium 3.0-0.5 MG/3 ML Neb Soln NEB PRN ×2 (01:30→15:31)
[2020-11-30] MEDS: Warfarin 5 MG Tab JTUBE SCH (07:59)
[2020-11-30] MEDS: Pantoprazole 40 MG Vial IV SCH (08:07)
[2020-11-30] MEDS: Amiodarone 200 MG Tab JTUBE SCH (08:08)
[2020-11-30] MEDS: Lidocaine 5% 700 MG Patch TOP SCH (08:09)
[2020-11-30] MEDS: Ferrous Sulfate Solution 220 MG/5 ML ML 473 ML Bottle JTUBE SCH ×2 (08:18→19:49)
[2020-11-30] MEDS: Lisinopril 5 MG Tab JTUBE SCH (08:24)
[2020-11-30] MEDS: amLODIPine 10 MG Tab JTUBE SCH (08:25)
[2020-11-30] MEDS: Insulin Glarg,Human.Rec.Analog 100 Unit/ML SUBCUT SCH (19:49)
[2020-11-30] MEDS: Acetaminophen 325 MG Tab PO PRN (22:18)
[2020-11-30] MEDS: Melatonin 3 MG Tab JTUBE PRN (22:18)
[2020-12-01] MEDS: Ondansetron 4 MG/2 ML SDV IVPUSH PRN ×2 (03:16→21:45)
[2020-12-01] MEDS: Albuterol/Ipratropium 3.0-0.5 MG/3 ML Neb Soln NEB PRN (03:26)
[2020-12-01] MEDS: Warfarin 5 MG Tab JTUBE SCH (08:50)
[2020-12-01] MEDS: Ferrous Sulfate Solution 220 MG/5 ML ML 473 ML Bottle JTUBE SCH ×2 (08:51→19:37)
[2020-12-01] MEDS: Lisinopril 5 MG Tab JTUBE SCH (08:54)
[2020-12-01] MEDS: amLODIPine 10 MG Tab JTUBE SCH (08:56)
[2020-12-01] MEDS: Amiodarone 200 MG Tab JTUBE SCH (08:57)
[2020-12-01] MEDS: Pantoprazole 40 MG Vial IV SCH (08:57)
[2020-12-01] MEDS: Lidocaine 5% 700 MG Patch TOP SCH (09:02)
[2020-12-01] MEDS: Insulin Glarg,Human.Rec.Analog 100 Unit/ML SUBCUT SCH (19:55)
[2020-12-01] MEDS: Acetaminophen 325 MG Tab PO PRN (21:40)
[2020-12-01] MEDS: Melatonin 3 MG Tab JTUBE PRN (21:40)
[2020-12-02] MEDS: amLODIPine 10 MG Tab JTUBE SCH (08:04)
[2020-12-02] MEDS: Warfarin 5 MG Tab JTUBE SCH (08:05)
[2020-12-02] MEDS: Lisinopril 5 MG Tab JTUBE SCH (08:06)
[2020-12-02] MEDS: Lidocaine 5% 700 MG Patch TOP SCH (08:07)
[2020-12-02] MEDS: Amiodarone 200 MG Tab JTUBE SCH (08:07)
[2020-12-02] MEDS: Pantoprazole 40 MG Vial IV SCH (08:08)
[2020-12-02] MEDS: Ferrous Sulfate Solution 220 MG/5 ML ML 473 ML Bottle JTUBE SCH ×2 (08:09→20:38)
[2020-12-02] MEDS: ALPRAZolam 0.25 MG Tab PO PRN ×2 (12:45→20:43)
--- NOTE | 2020-12-02 12:53 | PN ---
DATE: 12/02/2020 I had a long discussion with Sohail and his regarding his rehab. He is clinically doing quite well. He still continues to have a little bit of spitting up with water. She has asked to decrease the amount of his saline flushes, and we will decrease that from 250 to 125 every 4 hours. There is a concern about his rehab and availability of staff just to get him up and moving and doing aggressive rehab every day. I had a long discussion in this regard. We talked about usp placement as they probably have some more frequency of services, and they understand that. At this point, we are going to get a consult with [facility] for possible usp placement for short term stay for rehab. Total time with the family was approximately half hour. ASHLEY /[id number]
[2020-12-02] MEDS ORDERED: Sodium Chloride 0.9% 1,000 ML IV ONE (16:50)
[2020-12-02 16:56] LABS: O2 DELIVERY DEVICE RESUSCITATION BAG
[2020-12-02 16:59] LABS: BICARBONATE,ARTERIAL 23.2 mm/L (22.0-26.0); O2 SATURATION ARTERIAL 79 % (95-98); PCO2 ARTERIAL 71 mm/Hg0 (35-45); PO2 ARTERIAL 58 mm/Hg (80-100)
[2020-12-02] MEDS ORDERED: Sodium Chloride 0.9% 1,000 ML ONE (17:06)
[2020-12-02] MEDS ORDERED: Rocuronium 50 MG/5 ML Vial ONE (17:22)
[2020-12-02] MEDS ORDERED: Succinylcholine 200 MG/10 ML MDV ONE (17:22)
[2020-12-02] MEDS: Albuterol/Ipratropium 3.0-0.5 MG/3 ML Neb Soln NEB PRN (18:09)
[2020-12-02] MEDS: Hyoscyamine 0.125 MG Tab.SL SL PRN (18:21)
[2020-12-02] MEDS: Insulin Glarg,Human.Rec.Analog 100 Unit/ML SUBCUT SCH (20:39)
[2020-12-02] MEDS: Albuterol 0.083% 2.5 MG/3 ML Neb Soln NEB SCH (20:41)
[2020-12-02] MEDS: Levofloxacin/Dextrose 5%-Water 500 MG in Premix Bag 1 BAG IV SCH (20:41)
[2020-12-02] MEDS: Acetaminophen 325 MG Tab PO PRN (20:43)
[2020-12-02] MEDS: Melatonin 3 MG Tab JTUBE PRN (21:45)
[2020-12-02] MEDS: Ondansetron 4 MG/2 ML SDV IVPUSH PRN (21:45)
[2020-12-03] MEDS: Morphine 4 MG/ML VIAL IV PRN ×2 (00:22→15:14)
[2020-12-03] MEDS: Acetaminophen 325 MG Tab PO PRN ×3 (02:08→15:39)
[2020-12-03] MEDS: amLODIPine 10 MG Tab JTUBE SCH (08:40)
[2020-12-03] MEDS: Lidocaine 5% 700 MG Patch TOP SCH (08:40)
[2020-12-03] MEDS: Lisinopril 5 MG Tab JTUBE SCH (08:44)
[2020-12-03] MEDS: Amiodarone 200 MG Tab JTUBE SCH (08:44)
[2020-12-03] MEDS: Ferrous Sulfate Solution 220 MG/5 ML ML 473 ML Bottle JTUBE SCH ×2 (08:45→20:12)
[2020-12-03] MEDS: Albuterol 0.083% 2.5 MG/3 ML Neb Soln NEB SCH ×4 (08:46→20:10)
[2020-12-03] MEDS: Pantoprazole 40 MG Vial IV SCH (08:50)
--- NOTE | 2020-12-03 09:10 | PN ---
DATE: 12/02/2020 Called to Sohail's room, 111 at [facility] at approximately 4:44, code blue. The patient had what sounds like a hypoxic episode. He has been having a lot of issues with secretions, unable to clear. He has been having some reflux and he might have had actual seizure activity. I came to the room and he had a normal blood pressure and pulse is in 80s, but his saturations were down into the 60s. He was given supplemental oxygen, but not being bagged, patient had inefficient work of breathing. He was placed in the supine position. With jaw thrust and mask, we were able to bag him and get his saturation above 93%. Lab work is pending. His blood pressures have not fallen and his pulse is in the 80s to 90s. We were able to slowly get him off the bag valve mask ventilation and he is now on a 15 L non-rebreather and he is maintaining saturations around 90%. He is alert and oriented now and is able to respond. He has very frothy breath sounds and sounds very congested with mucus. I had a long discussion with who was present at his bedside now and they do want to switch him to a code level 2. They do not want intubation or cardiac medications, chest compressions, etc. At this time, we are going to keep him on recurrent nebs. We will keep him off any ice chips as he is having ongoing issues with aspiration, and morphine will be used for comfort measures at this point. Family wants nothing further aggressive done. At this time, his vital signs appeared to be holding. His BP is 140/85, pulse 95, saturations 91% on a 15 L non-rebreather. The patient makes good eye contact. He is able to answer both myself and his present at bedside. Pending labs include a CBC, metabolic panel, troponin. EKG showed nonspecific ST changes laterally. No obvious ischemia. We are waiting on the troponin. His chest x-ray was of poor quality with a patch over the right side of his chest, but no overt signs of failure. VIANCA/WILFRID /[id number]
[2020-12-03] MEDS: ALPRAZolam 0.25 MG Tab PO PRN ×2 (10:04→17:18)
[2020-12-03] MEDS: Ondansetron 4 MG/2 ML SDV IVPUSH PRN ×2 (10:04→16:21)
--- NOTE | 2020-12-03 11:13 | PN ---
DATE: 12/03/2020 S: Sohail is breathing a little better today. He is saturating around 94% to 96% on 9 L non-rebreather. Overall, better. Did spike a low-grade temp today, is getting a lot of sputum up, and we do have him on IV antibiotics for likely aspiration. O: GENERAL: His exam today shows him to be alert and oriented. He is breathing on his own. He is coughing up a lot of sputum. NECK: Veins are flat. LUNG: Sounds are rhonchus throughout, but no audible rales. CARDIAC: Tones are irregular but controlled. ABDOMEN: Soft and nontender. EXTREMITIES: He has no peripheral edema. ASSESSMENT: 1. LIKELY ASPIRATION PNEUMONIA. 2. STAGE IV ESOPHAGEAL CARCINOMA. 3. CHRONIC ATRIAL FIBRILLATION. P: We will add some Solu-Medrol to the Levaquin and put him back on Reglan which he was on in [place] for gastroparesis and hopefully will help with some of the aspiration. Continue with current pulmonary cares. We will try to get a sputum culture, and I will repeat his lab work at family's request today. VIANCA/WILFRID /[id number]
[2020-12-03] MEDS ORDERED: methylPREDNISolone Sodium Succinate 125 MG/2 ML SDV IVPUSH SCH (12:00)
[2020-12-03] MEDS: Metoclopramide 10 MG/2 ML SDV IVPUSH SCH ×2 (12:40→18:11)
[2020-12-03] MEDS: Hyoscyamine 0.125 MG Tab.SL SL PRN (15:28)
[2020-12-03] MEDS: Albuterol/Ipratropium 3.0-0.5 MG/3 ML Neb Soln NEB PRN (17:18)
[2020-12-03] MEDS: Levofloxacin/Dextrose 5%-Water 500 MG in Premix Bag 1 BAG IV SCH (20:10)
[2020-12-03] MEDS: Insulin Glarg,Human.Rec.Analog 100 Unit/ML SUBCUT SCH (20:12)
[2020-12-03 22:11] VITALS: BP 112/55; PULSE 90
--- NOTE | 2020-12-20 23:58 | DISCH ---
DATE OF : 12/03/2020. REASON FOR HOSPITALIZATION: Admission Diagnoses: 1. Swing bed placement. 2. Esophageal cancer, metastatic. 3. Aspiration pneumonia. 4. Weakness. 5. Chronic atrial fibrillation. 6. Hypertension. DISCHARGE DIAGNOSIS: 1. ASPIRATION PNEUMONIA WITH RESPIRATORY FAILURE. 2. METASTATIC ESOPHAGEAL CANCER. 3. CHRONIC ATRIAL FIBRILLATION. 4. HYPERTENSION. 5. HISTORY OF TYPE 2 DIABETES. HISTORY: Sohail is a 70-year-old who recently had an extended stay in [place] after being transferred for aspiration pneumonia. He has grade 4 esophageal cancer and difficulty swallowing, handling secretions. He was transferred for aspiration pneumonia, was on a vent for some time, and he completed his antibiotics, needed nutritional support with a feeding tube and he came to us for routine cares with PT, etc. HOSPITAL COURSE: The patient for the first 3 or 4 days was fine. He was starting to have more, more trouble with handling his own secretions. He was only allowed oral swabs of water and ice and he was starting to have more and more vomiting, started to having increasing cough. On the day prior to his , the patient had a significant coughing spell and actually quit breathing on us. We bagged him and got his sats back up, started him on antibiotics for likely aspiration. At that time, family made a decision to make him a code level 2, to discontinue antibiotics and routine pulmonary cares, but they did not want intubation or further aggressive measures. For a short time, patient was able to be on a non-rebreather around 9 L and maintain his sats. He was starting to work harder and harder to breathe and finally succumbed to his respiratory failure on the that evening. Family were present at bedside and there were no complications. COMPLICATIONS: During his stay were none. CONSULTATIONS: PT. DISPOSITION: home arrangements made. ASHLEY /[id number]
== END 2020-12-03 21:55 | disposition expired | DRG 177 ==
LOC: UNDOADMIN 13:54 → CC.MS 13:54
PROVIDERS: ADMIT Physician Assistant Medical; ATTEND Family Medicine
DX: J69.0 Pneumonitis due to inhalation of food and vomit (principal); J96.91 Respiratory failure, unspecified with hypoxia; I48.20 Chronic atrial fibrillation, unspecified; C15.9 Malignant neoplasm of esophagus, unspecified; R53.81 Other malaise; I10 Essential (primary) hypertension; N40.0 Benign prostatic hyperplasia without lower urinary tract symptoms; E11.43 Type 2 diabetes mellitus with diabetic autonomic (poly)neuropathy; K31.84 Gastroparesis; K21.9 Gastro-esophageal reflux disease without esophagitis; R53.1 Weakness; Z51.5 Encounter for palliative care; Z90.49 Acquired absence of other specified parts of digestive tract; Z92.21 Personal history of antineoplastic chemotherapy; Z93.1 Gastrostomy status
CPT/HCPCS: 36415; 36600; 71045; 80048; 80053; 82550; 82803; 82947; 83615; 84484; 85025; 85610; 86140; 87070; 87205; 90662; 93005; 94640; 97110-GP; 97161-GP; 97530-GP; A9270-GY; C9113; G0008; J0330; J1642; J1815-GY; J1956; J2270; J2405; J2765; J2930; J7030; J7613-GY; J7620-GY